=== PATIENT | male | born 1965 | race Caucasian/White ===

== ENCOUNTER 2024-05-18 18:36 | Inpatient (IN) | payer OTHER, SELFPAY ==
[2024-05-18 14:57] VITALS: BP 169/94
[2024-05-18 15:16] VITALS: BP 157/85
--- NOTE | 2024-05-18 15:34 | ED.GENMED ---
History of Present Illness
General
Chief Complaint: Breathing Problem
Source: patient and records
Exam Limitations: none
Time Seen by Provider: 05/18/24 15:13
Nursing documentation reviewed up to this point in time: agreed with
History of Present Illness
History of Present Illness:
58-year-old male presents with cough fatigue dyspnea on exertion about a month ago had a sinus infection symptoms have persisted, with shortness of breath cough possibly some weight gain into his abdomen, states he feels very short of breath when he
walks, he is wheezing, nondrinker non-smoker though he occasionally has a cigar, has had a cardiac cath that showed nonobstructive disease and mild at [place] for 5 years ago more recently had a similar one in [place] told that he was not a
candidate for valve repair nor a stent based upon the results
Past History
Past History
ED Past Medical History: Arrthythmia, CAD (Nonobstructive) and Valvular disease
ED Past Surgical History: Cardiac (Cath x 2)
Social History
Tobacco: Non-smoker
Alcohol: None
Drug: None
Personal: Partner
Living: with family
Employment: Employed
Review of Systems
Review of Systems
All Other Systems: Not applicable
Constitutional: Reports weight gain and fatigue; Denies fever or chills
Respiratory: Reports cough and trouble breathing
Cardiac: Denies chest pain
ABD/GI: Reports no symptoms
: Reports no symptoms
Musculoskeletal: Reports no symptoms
Skin: Reports no symptoms
Neurological: Reports no symptoms
Endocrine: Reports no symptoms
Phy Exam
Physical Exam
Physical Exam:
Physical Exam
General: no apparent distress, not acutely ill
Neck: No icterus
Heart: Regular with soft systolic murmur
Lungs: Crackles
Abdomen: Obese not tender
Neuro: alert and oriented. no focal neurological deficits
Skin: no rash
Psychiatric: well kept. interactive and cooperative
Extremities: Trace edema
Scores
Heart Failure Risk
Heart Failure Risk Score: Yes
History of Stroke or TIA: No
History of intubation for respiratory distress: No
Heart rate on ED arrival >/= 110: No
SaO2 <90% on arrival on room air: No
HR >/=110 during 3min walk test (or too ill to perform test): Yes
ECG has acute ischemic changes: No
Urea >/=12mmol/L (BUN 33.6mg/dL): No
Serum CO2>/=35mmol/L: No
Troponin I or T elevated to GA Level (0.4mg/dL): No
NT-proBNP >/=5,000ng/L (5,000pg/ml): No
HF Risk Score: 2
Admission Status: MEDIUM RISK 9.2% Consider observation or discharge to home with homecare & f/u visit to PCP/[employer] [employer], or SNF for treatment
Course
Orders/Labs/Results
Orders:
Orders
05/18/24 14:58
Electrocardiogram (*1) Urgent
Reason for Study: Shortness of Breath
EKG- Treatment ONCE
05/18/24 15:29
Electrocardiogram (*1) Stat
Reason for Study: Other
Other Reason for Exam: chest pain
Cardiac Monitoring- Treatment ONCE
EKG- Treatment ONCE
CR Chest Portable - 1 View Urgent
Comment:
Reason For Exam: sob perez
Reason Study Needs to be Portable: Patient Unstable
05/18/24 15:35
Complete Blood Count/With Diff Urgent
Comprehensive Metabolic Panel Urgent
Magnesium Urgent
NT-proBNP Urgent
Troponin I Urgent
Comment: ADD ON
05/18/24 16:54
Add On- LAB Urgent
Tests Added?: troponin
Furosemide [Lasix] 60 mg IV NOW STA
Abnormal Lab Results
05/18/24
15:35
RBC 4.05 L 10^6/uL
(4.70-6.10)
Hgb 12.0 L g/dL
(13.0-18.0)
Hct 33.6 L %
(39.0-52.0)
MPV 13.0 H fL
(7.4-10.4)
Glucose 145 H mg/dl
(70-99)
ALT 61 H U/L
(0-50)
05/18/24 15:35
05/18/24 15:35
Vital Signs
Initial and Last Documented VS:
Initial Vital Signs
Temp Pulse Resp BP Pulse Ox
99.3 F 80 16 169/94 96
05/18/24 14:57 05/18/24 14:57 05/18/24 14:57 05/18/24 14:57 05/18/24 14:57
Last Documented Vital Signs
Temp Pulse Resp BP Pulse Ox
99.3 F 81 16 146/77 95
05/18/24 14:57 05/18/24 17:22 05/18/24 14:57 05/18/24 17:03 05/18/24 17:00
MDM/Problems Addressed
Differential Diagnosis Includes:
Heart failure valvular disease late presentation ACS pneumonia bronchitis less likely PE
MDM/Problems Addressed:
Shortness of breath dyspnea on exertion
Chronic conditions affecting care:
Valvular disease CAD
Acute Exacerbation and/or Progression of Chronic Illness:
Valvular disease CAD
*Critical Care Note
Total Time (30-74mins, 75-104mins- exclusive of procedures): Not Applicable
Update Note
Update Note:
Update labs noted, suspect he has congestive heart failure, by history physical proBNP does have valvular disease and CAD, believe would be prudent admitted to the hospital facilitated workup,
ED Attending Note
-
Portions of this chart may have been created with voice recognition software.� Occasional wrong word or��sound alike� substitutions may have occurred due to the inherent limitations of voice recognition software.
Discharge Plan
Departure
Patient Disposition: Admit
Date of Disposition: 05/18/24
Time of Disposition: 18:03
Admit to: Telemetry
Presentation/result/management discussed w/ accepting MD/DO: Hospitalist
Patient with high blood pressure during this ER visit?: Yes
Condition: Good
Covid-19: Not Applicable
Discharge Problem:
CHF (congestive heart failure)
Prescriptions:
No Action
tamsulosin 0.4 MG capsule
0.4 mg PO Q72H
metoprolol succinate 25 MG tablet extended release 24 hr
25 mg PO DAILY Qty: 20 1RF
doxycycline hyclate 100 mg capsule
100 mg PO BID Qty: 14 0RF
prednisone 20 mg tablet
40 mg PO DAILY 5 Days Qty: 10 0RF
albuterol sulfate [Ventolin HFA] 90 mcg/actuation HFA aerosol inhaler
1 inh inhalation Q6H PRN (Reason: shortness of breath or wheezing) Qty: 6.7 0RF
Referrals:
PRIVATE,PHYSICIAN [Family Provider] -
Interventions
Interventions:
*Risk Screen - Suicide Last Done: 05/18/24 17:11
*General Assessment Last Done: 05/18/24 17:10
*Neglect/Abuse Screening Last Done: 05/18/24 17:10
ED- Fall Risk Assessment Last Done: 05/18/24 15:59
ED- Cardiac Assessment Last Done: 05/18/24 15:59
ED- Pulmonary Assessment Last Done: 05/18/24 15:59
Discharge Date and Time
Print Language: WELSH
[2024-05-18 15:44] LABS: % Basophils 0.4 % (0-2); % Eosinophils 3.2 % (0-6); % Immature Granulocytes 0.3 % (0-0.5); % Lymphocytes 29.9 % (20.5-51.1); % Monocytes 6.1 % (1.7-9.3); % Neutrophils 60.1 % (42.2-75.2); Absolute Eosinophils 0.2 10^3/uL (0-0.7); Absolute Lymphocytes 2.1 10^3/uL (1.2-3.4); Absolute Monocytes 0.4 10^3/uL (0.1-0.6); Absolute Neutrophils 4.1 10^3/uL (1.4-6.5); Hematocrit 33.6 % (39.0-52.0); Mean Corp Hgb Conc. 35.7 g/dL (33.0-37.0); Mean Corpuscular Hgb 29.6 pg (27.0-31.0); Nucleated Red Blood Cells % 0 % (-); Platelet Count 132 10^3/uL (130-400); Red Blood Cell Count 4.05 10^6/uL (4.70-6.10); Red Cell Dist. Width 13.6 % (11.5-14.5); White Blood Cell Count 6.9 10^3/uL (4.8-10.8)
[2024-05-18 15:58] LABS: ALT (SGPT) 61 U/L (0-50); AST (SGOT) 35 U/L (17-59); Alkaline Phosphatase 56 U/L (38-126); Blood Urea Nitrogen 20 mg/dl (9-20); Calcium 8.8 mg/dl (8.4-10.2); Carbon Dioxide 23 mmol/L (22-30); Chloride 105 mmol/L (98-107); Glucose 145 mg/dl (70-99); Magnesium 1.8 mg/dl (1.6-2.3); Potassium 4.1 mmol/L (3.5-5.1); Sodium 139 mmol/L (135-145); Total Bilirubin 0.8 mg/dl (0.2-1.3); Total Protein 6.7 g/dl (6.3-8.2); eGFR > 60.00
[2024-05-18 16:00] VITALS: BP 138/76
[2024-05-18 16:07] LABS: NT-proBNP 1100 pg/ml
[2024-05-18 17:00] VITALS: BP 146/77
[2024-05-18] MEDS: LASIX 60 MG IV (17:03)
[2024-05-18 17:49] LABS: Troponin I 0.016 ng/ml
--- NOTE | 2024-05-18 18:04 | HPS.HSE ---
Addendum entered and electronically signed by Jules Petit MD 05/18/24 18:44:
58-year-old male with a past medical history of nonobstructive coronary artery disease, hypertension, BPH, and obesity presents with orthopnea, dyspnea with activity, ankle swelling, and weight gain. Patient reports that he had upper respiratory
symptoms for the last 2 weeks, including rhinorrhea, congestion. Those symptoms have mostly improved, with the exception of his cough. Then he started developing dyspnea with activity, orthopnea, ankle swelling, and weight gain this week. BNP is
elevated at 1100. Chest x-ray negative. He does appear fluid overloaded on exam. He has received Lasix 60 mg IV in the ER.
Will treat with Lasix 40 mg IV daily, check echocardiogram, consult cardiology.
I have personally seen and examined the patient, and agree with the plan of care as documented by KATI Heath.
Advance care planning discussed, patient is a full code.
All other issues as outlined by the advanced care practitioner.
Original Note:
Family Physician
-
Family Physician: PHYSICIAN PRIVATE
Chief Complaint
-
sob
History of Present Illness
58-year-old male presents to us with two weeks of cough with yellowish sputum, runny nose, congestion. for past three days, he is very week, [place]. he can't lay flat, because of cough. denied AMOS, dizzy or syncopal episode. denied fever, chills. denied
abdominal pain,n,v,d. denied dysuria or hematuria. stated 4-5 weight gain in one week. he noticed some ankle swelling.
received iv Lasix. admitting for further management.
Medical History
Past Medical History
Past Medical History: Reports Other
Additional Past Medical History:
Hyperlipidemia
Mild aortic stenosis
Obstructive sleep apnea syndrome
SVT
Past Surgical History: Reports None
Social History
Tobacco: Non-smoker
Alcohol: None
Drug: None
Personal:
Living: With Family
Family History
Family History: Not pertinent
Allergies / Home Medications
Allergies reflects when Allergies were last updated in [employer].
Home Medications with original date entered in [employer]
Allergy/Medication List:
Allergies
Allergy/AdvReac Type Severity Reaction Status Date / Time
morphine AdvReac Nausea / Verified 05/18/24 14:58
Vomiting
Home Medications
tamsulosin 0.4 mg capsule 0.4 mg PO DAILY 10/19/20
dorzolamide-timolol (PF) 2 %-0.5 % eye drops in a dropperette 1 drp BOTH EYES BID 05/18/24
olmesartan 20 mg tablet 20 mg PO DAILY 05/18/24
Review of Systems
-
Constitutional: Reports Weight Gain
EENT: Reports Runny Nose
Respiratory: Reports Cough and Trouble Breathing
Cardiac: Reports No Symptoms
Abdomen/GI: Reports No Symptoms
: Reports No Symptoms
Musculoskeletal: Reports No Symptoms
Skin: Reports No Symptoms
Neurological: Reports No Symptoms
Endocrine: Reports No Symptoms
Hematologic/Lymphatic: Reports No Symptoms
Psych: Reports No Symptoms
Physical Exam
Vital Signs
Vital Signs
Temp Pulse Resp BP Pulse Ox
99.3 F 81 16 146/77 95
05/18/24 14:57 05/18/24 17:22 05/18/24 14:57 05/18/24 17:03 05/18/24 17:00
Physical Exam
General: Well Developed, Well Nourished and No Apparent Distress
HEENT: NormoCephalic, Moist mucous membranes and Atraumatic
Respiratory: Crackles
Cardiac: S1/S2 and Regular Rhythm; No Murmur or Rub
GI: Soft, Non Tender, Non Distended and Normal Bowel Sounds; No Organomegaly
Rectal: Deferred by Provider
Musculoskeletal: No Clubbing, No Cyanosis and No Edema
Skin: No Rash
Neuro: AO x 3 and Nonfocal/grossly intact
Psych: Calm
Laboratory Results
-
05/18/24 15:35
05/18/24 15:35
Laboratory Results
Total Bilirubin 0.8 mg/dl (0.2-1.3) 05/18/24 15:35
AST 35 U/L (17-59) 05/18/24 15:35
ALT 61 U/L (0-50) H 05/18/24 15:35
Alkaline Phosphatase 56 U/L (38-126) 05/18/24 15:35
Troponin I Cancelled 05/18/24 16:53
Data Reviewed
-
Diagnostic Radiology: Report Reviewed by me
Lab Data: Labs Reviewed by me
Impression/Plan
-
#new onset CHF
-[id number]
-chest x ray with cardiopulmonary disease
-iv lasix 40mg daily
-strict I &O
-daily weight
-fluid restriction
-obtain ECHO
-cardiology consult
#essential HTN
-olmesartan continued with hold parameter
#BPH
-Flomax continued
#DVT prophylaxis
-Lovenox
#CODE status
-full code
[2024-05-18 20:04] LABS: COVID-19 Antigen Negative (Negative)
[2024-05-18 20:22] VITALS: BP 140/79
[2024-05-18 23:41] VITALS: BP 124/76
[2024-05-19 03:20] VITALS: BP 131/65
[2024-05-19 07:23] VITALS: BP 142/87
[2024-05-19 08:36] LABS: Hematocrit 37.8 % (39.0-52.0); Hemoglobin 13.2 g/dL (13.0-18.0); Mean Corp Hgb Conc. 34.9 g/dL (33.0-37.0); Mean Corpuscular Hgb 29.8 pg (27.0-31.0); Mean Corpuscular Volume 85.3 fL (80.0-94.0); Mean Platelet Volume 12.4 fL (7.4-10.4); Platelet Count 123 10^3/uL (130-400); Red Blood Cell Count 4.43 10^6/uL (4.70-6.10); Red Cell Dist. Width 13.5 % (11.5-14.5); White Blood Cell Count 6.7 10^3/uL (4.8-10.8)
[2024-05-19] MEDS: FLOMAX 0.4 MG PO (08:40)
[2024-05-19] MEDS: BENICAR 20 MG PO (08:40)
[2024-05-19] MEDS: LASIX 40 MG IV ×2 (08:40→15:42)
[2024-05-19] MEDS: FLUSH (NSS) 1 FLUSH IV (08:41)
[2024-05-19 08:59] LABS: ALT (SGPT) 61 U/L (0-50); AST (SGOT) 30 U/L (17-59); Albumin 4.3 g/dl (3.5-5.0); Alkaline Phosphatase 60 U/L (38-126); Blood Urea Nitrogen 19 mg/dl (9-20); Calcium 9.1 mg/dl (8.4-10.2); Carbon Dioxide 27 mmol/L (22-30); Chloride 103 mmol/L (98-107); Direct Bilirubin 0.2 mg/dl (0.0-0.4); Glucose 118 mg/dl (70-99); HDL Cholesterol 37 mg/dl; LDL Cholesterol, Calculated 208 mg/dl; Magnesium 2.1 mg/dl (1.6-2.3); Sodium 142 mmol/L (135-145); Total Bilirubin 1.1 mg/dl (0.2-1.3); Total Cholesterol 276 mg/dl (50-199); Triglyceride 157 mg/dl (10-149); Very Low Density Lipoprotein 31 mg/dl (0-30); eGFR > 60.00
--- NOTE | 2024-05-19 09:17 | CON.CAR ---
Addendum entered and electronically signed by Mamadou Cardozo MD 05/19/24 16:34:
I interviewed and examined the patient. I discussed the plan with resident MD Dr. Ordonez. Agree with plan with changes/additions per this addendum.
58 yo with PMH of non-obstructive CAD ([facility] 2022), hyperlipidemia (FH range), PVC's, HTN, obesity, pre-DM admitted with SOB, edema,weight gain. He thinks he had COVID 2-3 weeks ago. No chest pain. Exam with RRR, no murmurs, trace LE
edema. Cr 0.8. Tele: SR 60s, PVC's.
Acute HF, severe, requiring hospitalization and IV lasix, with close monitoring of tele. Suspect HFPEF. Check echo. Continue IV lasix.
Non-obstructive CAD ([facility] 2022), hyperlipidemia (FH range). No angina. Add ASA 81mg daily. He declines statin.
Original Note:
Consultation
Consultation Request
Date/Time Consultation Requested: 05/18/2024
Date/Time Consultation Performed: 05/19/2024
Reason for Consultation: CHF
Medical History
-
Chief Complaint: Shortness of breath with exertion
History of Present Illness:
58-year-old male with past medical history of hypertension, BPH, hyperlipidemia presented to the ED with symptoms of orthopnea, dyspnea with exertion and weight gain. Patient reports symptoms of URI ongoing for the past 2 weeks including cough
congestion and rhinorrhea. Over the past few days symptoms of URI have been resolving, but now progressed to shortness of breath with exertion. Reports having similar presentation a year ago and was treated at [facility]. On
presentation to the ED, patient was afebrile, with O2 sats 97% on room air. Evaluation with chest x-ray unremarkable. proBNP 1100, troponin normal.
Past Medical History
Past Medical History: Other (Valvular disease, hypertension, BPH, hyperlipidemia, nonobstructive CAD)
Social History
Tobacco: Non-Smoker
Alcohol: None
Drug: None
Family History
Family History: Reviewed & Not Pertinent
Allergies / Home Medications
Allergy/AdvReac Type Severity Reaction Status Date / Time
morphine AdvReac Nausea / Verified 05/18/24 14:58
Vomiting
�Medication �Instructions �Recorded �Confirmed �Type
tamsulosin 0.4 mg capsule 0.4 mg PO DAILY bph 10/19/20 05/18/24 History
dorzolamide-timolol (PF) 2 %-0.5 % 1 drp BOTH EYES BID Eye Condition 05/18/24 05/18/24 History
eye drops in a dropperette
olmesartan 20 mg tablet 20 mg PO DAILY Blood Pressure 05/18/24 05/18/24 History
Review of Systems
-
All other systems: Negative unless noted
Physical Exam
Vital Signs
Temp Pulse Resp BP Pulse Ox
98.2 F 65 18 142/87 96
05/19/24 07:23 05/19/24 08:40 05/19/24 07:23 05/19/24 08:40 05/19/24 07:23
Lab Results
05/19/24 07:55
05/19/24 07:55
Troponin I Cancelled 05/18/24 16:53
Gqg-F-Iudmnwwyngf Pept 1100 pg/ml 05/18/24 15:35
Physical Exam
General: No Apparent Distress
Respiratory: Crackles (Mild B/L)
Cardiac: S1/S2 and Regular Rhythm
Musculoskeletal: Edema (Trace)
Neuro: Nonfocal/Grossly Intact
Impression / Plan
-
Impression/plan
Acute HFpEF
-Continue diuresis with IV Lasix
-Echo 06/25/2019 with LVEF 55 to 60%, mild aortic stenosis
-Update echo tomorrow a.m.
-Monitor weights, I's and O's, restrict fluids.
[2024-05-19 09:20] LABS: TSH Reflex To Free T4 2.86 uIU/ml (0.47-4.68)
--- NOTE | 2024-05-19 11:06 | W.PN.HOSP.TC ---
Today's Communication/Plan
-
diuresis
TTE
Cardiology consult
obtain records from last hospitalization - [facility]
Assessment / Plan
Assessment / Plan
58-year-old male with a past medical history of nonobstructive coronary artery disease, hypertension, BPH, and obesity presents with orthopnea, dyspnea with activity, ankle swelling, and weight gain, admitted for CHF exacerbation.
#new onset CHF, unknown EF
-[id number]
-chest x ray without active cardiopulmonary disease
-IV lasix 40mg daily
-strict I &O
-daily weight
-fluid restriction
-obtain ECHO
-cardiology consult
#essential HTN
-olmesartan continued with hold parameter
#BPH
-Flomax continued
#DVT prophylaxis
-Lovenox
#CODE status
-full code
Anticipated Discharge: 24 - 48 hours
Subjective/Interval History
-
Date of Service: May 19, 2024
urinated a lot overnight
feeling better today
continues to have some shortness of breath with walking
Objective Data
-
Labs:
Laboratory Results
05/19/24
07:55
WBC 6.7
Hgb 13.2
Hct 37.8 L
Plt Count 123 L
Sodium 142
Potassium 4.0
Chloride 103
Carbon Dioxide 27
BUN 19
Creatinine 0.8
Glucose 118 H
Calcium 9.1
Total Bilirubin 1.1
AST 30
ALT 61 H
Alkaline Phosphatase 60
Vital Signs:
Vital Signs
Temp Pulse Resp BP Pulse Ox
98.2 F 65 18 142/87 96
05/19/24 07:23 05/19/24 08:40 05/19/24 07:23 05/19/24 08:40 05/19/24 07:23
I&O
05/18/24 05/19/24 05/20/24
06:59 06:59 06:59
Intake Total 240 / 240
Balance 240 / 240
Review of Systems
-
History Source: Patient
All other systems: Reviewed and negative
Physical Exam
-
General: Obese
HEENT: PERRLA
Respiratory: Rales
Cardiac: Regular Rhythm and S1/S2
GI: Soft, Nontender and Nondistended
Musculoskeletal: Other (trace edema )
Skin: Warm and Dry; Negative Rash
Neuro: AO x 3
Psych: Calm
Data Reviewed
-
Diagnostic Radiology: Report Reviewed by me
Labs: Labs Reviewed by me
[2024-05-19 11:35] VITALS: BP 141/85
[2024-05-19 15:23] VITALS: BP 132/88
--- NOTE | 2024-05-19 19:26 | CM ---
met with patient at bedside.patient lives with his and 2 children in [facility] with 2 mathew,his bed and bath is on the second floor.he is I ambulating and I with his adl.he has never been seen by a vn or been in ip rehab
pcp is not sureof his pcp and he uses [facility] [place].
pmh:chf,vt,cad,valvular disease
patient is adm with difficulty breathing,he is sating ok on ra(he does not use home o2 at baseline) .on iv lasix bid.Plan;dc home with no needs.
attending asked to duarte farxigo and jardiance for tx fo chf. i called his [facility] in [place]. farxigo is not covered.cost is
$673.99 and jardiace needs to be precerted.cost is $725.99 with no precert.pharacist seems to think that if patient got [place] it may be less costly.attending aware.
[2024-05-19] MEDS: NON-FORMULARY ITEM 1 DROP BOTH EYES (19:29)
[2024-05-19 19:30] VITALS: BP 134/73
[2024-05-19 22:48] VITALS: BP 109/78
[2024-05-20 02:51] VITALS: BP 104/60
[2024-05-20 05:45] VITALS: BMI 36.1
[2024-05-20 07:38] VITALS: BP 108/73
[2024-05-20 07:59] LABS: Blood Urea Nitrogen 35 mg/dl (9-20); Calcium 9.3 mg/dl (8.4-10.2); Carbon Dioxide 32 mmol/L (22-30); Chloride 98 mmol/L (98-107); Estimated Creatinine Clearance 74 ml/min; Glucose 120 mg/dl (70-99); Potassium 4.4 mmol/L (3.5-5.1); Sodium 142 mmol/L (135-145); eGFR > 60.00
[2024-05-20 08:35] LABS: Hematocrit 40.8 % (39.0-52.0); Hemoglobin 14.1 g/dL (13.0-18.0); Mean Corp Hgb Conc. 34.6 g/dL (33.0-37.0); Mean Corpuscular Hgb 29.2 pg (27.0-31.0); Mean Corpuscular Volume 84.5 fL (80.0-94.0); Mean Platelet Volume 12.4 fL (7.4-10.4); Platelet Count 156 10^3/uL (130-400); Red Blood Cell Count 4.83 10^6/uL (4.70-6.10); Red Cell Dist. Width 13.8 % (11.5-14.5); White Blood Cell Count 8.1 10^3/uL (4.8-10.8)
[2024-05-20] MEDS: NON-FORMULARY ITEM 1 DROP BOTH EYES (09:32)
[2024-05-20] MEDS: BENICAR PO (09:33)
[2024-05-20] MEDS: LOW STRENGTH ASPIRIN 81 MG PO (09:34)
[2024-05-20] MEDS: FLOMAX 0.4 MG PO (09:34)
[2024-05-20] MEDS: LASIX 40 MG IV (09:35)
[2024-05-20 11:26] VITALS: BP 113/73
--- NOTE | 2024-05-20 11:40 | W.PN.HOSP.TC ---
Today's Communication/Plan
-
see plan
Assessment / Plan
Assessment / Plan
58-year-old male with a past medical history of nonobstructive coronary artery disease, hypertension, BPH, and obesity presents with orthopnea, dyspnea with activity, ankle swelling, and weight gain, admitted for CHF exacerbation.
#new onset CHF, unknown EF
-[id number]
-chest x ray without active cardiopulmonary disease
-s/p diuresis with improvement in symptoms; will put on hold for now until cardiology evaluates, can likely transition to oral tomorrow
-cardiac cath 2022 with lesion LAD 50% no stenting
-strict I &O
-daily weight
-fluid restriction
-F/U echo results
-cardiology consult
#essential HTN
-olmesartan continued with hold parameter
#BPH
-Flomax continued
#DVT prophylaxis
-Lovenox
#CODE status
-full code
Anticipated Discharge: Within 24 hours
Subjective/Interval History
-
Date of Service: May 20, 2024
feeling well
hoping to go home
walked around without shortness of breath, no LE swelling
awaiting echo results
Objective Data
-
Labs:
Laboratory Results
05/20/24
07:03
WBC 8.1
Hgb 14.1
Hct 40.8
Plt Count 156 D
Sodium 142
Potassium 4.4
Chloride 98
Carbon Dioxide 32 H
BUN 35 H
Creatinine 1.3
Glucose 120 H
Calcium 9.3
Vital Signs:
Vital Signs
Temp Pulse Resp BP Pulse Ox
97.8 F 70 18 113/73 100
05/20/24 11:26 05/20/24 11:26 05/20/24 11:26 05/20/24 11:26 05/20/24 11:26
I&O
05/19/24 05/20/24 05/21/24
06:59 06:59 06:59
Intake Total 240 / 240 1200 / 1200
Output Total 250 / 250
Balance 240 / 240 950 / 950
Review of Systems
-
History Source: Patient
All other systems: Reviewed and negative
Physical Exam
-
General: Obese
HEENT: PERRLA
Respiratory: Rales
Cardiac: Regular Rhythm and S1/S2
GI: Soft, Nontender and Nondistended
Musculoskeletal: No Edema
Skin: Warm and Dry; Negative Rash
Neuro: AO x 3
Psych: Calm
Data Reviewed
-
Diagnostic Radiology: Report Reviewed by me
Labs: Labs Reviewed by me
--- NOTE | 2024-05-20 13:55 | CM ---
Chart reviewed and patient is out of bed ambulating hallway. Patient is no longer on oxygen.
Plan; Plan is to home no needs.
--- NOTE | 2024-05-20 13:58 | W.PN.CD ---
Today's Communication / Plan
-
OK for home
F[place]
He may see us if he wishes
Impression / Plan
-
Acute HFpEF
- Now euvolemic at 107.6 kg
- Move to PO meds: lasix, Farxiga, Aldactone
- BMP in 2 and 4 weeks
Mild aortic stenosis
Severe hyperlipidemia
- refuses statin and any cholesterol medications
HTN
Glaucoma with visual loss
Nonobstructive CAD per patient (cath here in 2019: luminal disease and 70% RVB (med rx). He reports cath at [facility] with just a 40% lesion
Subjective:
Feels well.
Physical Exam
Vital Signs/Labs
Vital Signs
Temp Pulse Resp BP Pulse Ox
97.8 F 70 18 113/73 100
05/20/24 11:26 05/20/24 11:26 05/20/24 11:26 05/20/24 11:26 05/20/24 11:26
05/19/24 05/20/24 05/21/24
06:59 06:59 06:59
Actual Weight 110.6 kg 107.586 kg
05/20/24 07:03
05/20/24 07:03
Magnesium 2.1 mg/dl (1.6-2.3) 05/19/24 07:55
Triglycerides 157 mg/dl (10-149) H 05/19/24 07:55
LDL Cholesterol, Calc 208 mg/dl 05/19/24 07:55
VLDL Cholesterol, Calc 31 mg/dl (0-30) H 05/19/24 07:55
HDL Cholesterol 37 mg/dl 05/19/24 07:55
05/18/24
15:35
Mrn-A-Phvgejwhfsu Pept 1100
LAB Results
05/18/24 05/18/24
15:35 16:53
Troponin I 0.016 Cancelled
Physical Exam
Constitutional: No acute distress
EENT: Anicteric
Cardiovascular: Rhythm & rate is regular, Pedal edema is absent, Systolic murmur present and S1S2 is normal
Respiratory: Respiratory effort normal and Lungs clear to auscul.
GI: Soft and Distention absent
Neuro/Psych: AO x 3
Data Reviewed
-
Date of Service: May 20, 2024
--- NOTE | 2024-05-20 14:23 | W.DS.TRANS ---
DC Summary - [employer]
-
Discharge Instructions:
Discharge Diagnosis/Procedures Heart Failure with preserved Ejection Fraction,
acute exacerbation
Diet 2 Gram Sodium,Restrict fluids to 48 oz
Activity As tolerated
Driving Restrictions As prior to admission
Bathing Restrictions None
Blood Work BMP in 1 week
Specialty Instructions Weigh Daily
Instructions: *[facility] Heart Failure Instructions
Stand-Alone Forms:
Changes to Home Medications: Yes
Discharge Medications:
DC Medications w/original date entered in [employer]
tamsulosin 0.4 mg capsule 0.4 mg PO DAILY bph 10/19/20
dorzolamide-timolol (PF) 2 %-0.5 % eye drops in a dropperette 1 drp BOTH EYES BID Eye Condition 05/18/24
olmesartan 20 mg tablet 20 mg PO DAILY Blood Pressure 05/18/24
aspirin 81 mg chewable tablet 81 mg PO DAILY #30 tabs 05/20/24
furosemide 20 mg tablet 20 mg PO DAILY #30 tabs 05/20/24
spironolactone 25 mg tablet 25 mg PO DAILY #30 tabs 05/20/24
Home Medication Changes
You are newly started on Lasix 20mg daily and Spironolactone 25mg daily.
We want to prescribe Farxiga 10mg daily, but it is not covered by your insurance. Please discuss obtaining prior authorization with your outpatient physician.
You are newly started on aspirin 81mg given history coronary artery disease.
Pending Results: No
--- NOTE | 2024-05-20 14:23 | W.DCSUMMARY ---
Discharge Summary
Discharge Data
Date of Admission: 05/18/24
Date of Discharge: 05/20/24
-
Pending Results: No
Hospital Course
Discharging Physician : Dr. Michelle Weiner
Disposition : Home
Principal Discharge diagnosis : Heart failure preserved ejection fraction, acute exacerbation
Hospital Course :
Mr. Ciro Matta is a 58-year-old male with a past medical history of nonobstructive coronary artery disease, hypertension, BPH, and obesity presents with orthopnea, dyspnea with activity, ankle swelling, and weight gain. Triage vitals with
hypertension. Labs with normal renal function. CXR without acute disease. He was found to be fluid overloaded on exam. Admitted to medicine with cardiology consulting for new heart failure. He was diuresed with IV lasix with resolution of
symptoms, drop in weight from 110.6kg to 107.6kg. TTE without change from prior. He is discharged on Lasix 20mg PO QD, Spironolactone 25mg PO QD. Unfortunately, Farxiga and Jardiance not covered or need prior auth -he will follow up as outpatient
to start one of these medications.
Patient's insurance only covers outpatient [facility] in [place] and he will make appointment within next 2 weeks.
Time spent on discharge was 32 minutes.
Important imaging findings :
TTE 05/20/24
CONCLUSIONS
Normal biventricular size and systolic function without regional wall motion
abnormality.
Mild concentric left ventricular hypertrophy.
Indeterminate diastolic function.
Mild aortic stenosis (mean 24 mmHg, LUIS ANTONIO 1.7cm2).
Proximal Asc Ao Diameter 3.7cm (mildly enlarged).
No significant change since the prior study of 06/25/2019.
Procedure findings :
Discharge Plan
-
Patient Disposition: Home (Routine Discharge)
Discharge Diagnosis/Procedures: Heart Failure with preserved Ejection Fraction, acute exacerbation
Diet: 2 Gram Sodium and Restrict fluids to 48 oz
Activity: As tolerated
Driving Restrictions: As prior to admission
Bathing Restrictions: None
Blood Work: BMP in 1 week
Specialty Instructions: Weigh Daily- Call MD for wt gain/loss 3 lbs overnight/5 lbs in 1 week
Activity Restrictions/Additional Instructions:
Please follow up with your [facility] in [place] within the next 1-2 weeks
Instructions: *CBC Heart Failure Instructions
Referrals:
PRIVATE,PHYSICIAN [Family Provider] - in less than 1 week
Additional Discharge Medication Instructions: You are newly started on Lasix 20mg daily and Spironolactone 25mg daily.
We want to prescribe Farxiga 10mg daily, but it is not covered by your insurance. Please discuss obtaining prior authorization with your outpatient physician.
You are newly started on aspirin 81mg given history coronary artery disease.
Prescriptions:
New
spironolactone 25 mg Tablet
25 mg PO DAILY Qty: 30 0RF
aspirin 81 mg Tablet,Chewable
81 mg PO DAILY Qty: 30 0RF
furosemide 20 mg Tablet
20 mg PO DAILY Qty: 30 0RF
Continued
tamsulosin 0.4 MG capsule
0.4 mg PO DAILY
olmesartan 20 mg Tablet
20 mg PO DAILY
dorzolamide-timolol (PF) 2-0.5 % Dropperette
1 drp BOTH EYES BID
Discharge Orders:
Discharge Patient (As Directed); Ordered 05/20/24
Ordered By: Michelle Wenier
Discharge Date and Time
Print Language: MACEDONIAN
[2024-05-20 15:30] VITALS: BP 126/83
--- NOTE | 2024-05-23 08:01 | W.HF.CON ---
Heart Failure
- LV Function
Left ventricular function study result: LV Ejection fraction >40%
Ejection Fraction Percentage: 60
- ARNI
Patient already on ARNI: No
Heart Failure ARNI Not Indicated: LV Ejection Fraction >/= 40%
- ACEI/ARB
Patient already on ACEI/ARB: Yes
- Beta Sarah
Patient already on Evidence Based Beta Sarah: No
Heart Failure Evidence Based Beta Sarah Not Indicated: LV Ejection Fraction > 40%
- Mineralocorticord Receptor Antagonist
Patient already on MRA: Yes
- SGLT-2 Inhibitor
Patient already on SGLT-2 Inhibitor: No
Heart Failure SGLT-2 Inhibitor Not Indicated: LV Ejection Fraction >40%
- NYHA CHF Classification
NYHA CHF Classification Level: Class III - Symptoms w/ min exertion, interferes w/ nml daily activity
- ACC/AHA Stage
ACC/AHA Stage: Stage C: Symptomatic Heart Failure
== END 2024-05-20 16:34 | disposition home or self-care (01) | DRG 291 ==
LOC: 4 WEST ACU 18:36
PROVIDERS: Registered Nurse; ADMITTING PHYSICIAN Family Medicine; ATTENDING PHYSICIAN Student in an Organized Health Care Education/Training Program; EMERGENCY PHYSICIAN Emergency Medicine; OTHER PHYSICIAN Internal Medicine
DX: I11.0 Hypertensive heart disease with heart failure (principal); I50.31 Acute diastolic (congestive) heart failure; E66.9 Obesity, unspecified; Z68.36 Body mass index [BMI] 36.0-36.9, adult; I35.0 Nonrheumatic aortic (valve) stenosis; N40.0 Benign prostatic hyperplasia without lower urinary tract symptoms; I25.10 Atherosclerotic heart disease of native coronary artery without angina pectoris; E78.5 Hyperlipidemia, unspecified; G47.33 Obstructive sleep apnea (adult) (pediatric); R06.09 Other forms of dyspnea; R53.83 Other fatigue; Z79.899 Other long term (current) drug therapy; Z86.79 Personal history of other diseases of the circulatory system; Z88.5 Allergy status to narcotic agent
CPT/HCPCS: 71045; 80048; 80053; 80061; 82248; 83735; 83880; 84443; 84484; 85025; 85027; 87811; 93005; 93306; 96374; 99285; 99406

== ENCOUNTER 2025-01-30 10:03 | Emergency (ER) | payer OTHER, SELFPAY ==
[2025-01-30 10:09] VITALS: BP 148/95
--- NOTE | 2025-01-30 10:49 | ED.GENMED ---
History of Present Illness
General
Chief Complaint: Breathing Problem
Source: patient, records, previous radiology exam and previous hospital records
Exam Limitations: none
Time Seen by Provider: 01/30/25 10:36
Nursing documentation reviewed up to this point in time: agreed with
History of Present Illness
History of Present Illness:
59-year-old male history of mild nonobstructive CAD seen by myself a few months ago with shortness of breath admitted for possible heart failure proBNP was 1100 had an echo cardiology consultation told he really did not have heart failure
discharged not on a diuretic, but 3 weeks ago developed wheezing cough shortness of breath some productive sputum, no chest pain symptoms are worse with exertion and lying flat, non-smoker no history of asthma, patient did take some diuretic that he
had previously
Past History
Past History
ED Past Medical History: Arrthythmia, CAD (Nonobstructive) and Valvular disease
ED Past Surgical History: Cardiac (Cath x 2)
Social History
Tobacco: Non-smoker
Alcohol: None
Drug: None
Personal: Partner
Living: with family
Employment: Employed
Review of Systems
Review of Systems
All Other Systems: Not applicable
Constitutional: Denies fever or fatigue
Respiratory: Reports cough, trouble breathing and other (Wheezing); Denies hemoptysis
Cardiac: Reports chest pain; Denies diaphoresis, palpitations or syncope
ABD/GI: Reports no symptoms
: Reports no symptoms
Musculoskeletal: Reports no symptoms
Skin: Reports no symptoms
Neurological: Reports no symptoms
Phy Exam
Physical Exam
Physical Exam:
Physical Exam
General: No acute distress on his cell phone
Neck: No JVD
Heart: s1/s2 regular rate and rhythm, no murmur. equal radial pulses.
Lungs: Expiratory wheeze
Abdomen: Nontender
Neuro: alert and oriented. no focal neurological deficits
Skin: no rash
Psychiatric: well kept. interactive and cooperative
Extremities: no edema. no calf tenderness.
Scores
Heart Failure Risk
Heart Failure Risk Score: Not Applicable
Course
Orders/Labs/Results
Orders:
Orders
01/30/25 10:04
Electrocardiogram (*1) Urgent
Reason for Study: Shortness of Breath
EKG- Treatment ONCE
01/30/25 10:50
Cardiac Monitoring- Treatment ONCE
Ipratropium/Albuterol Sulfate [Duoneb] 3 ml INH R NOW STA
CR Chest - 2 Views Urgent
Comment:
Reason For Exam: cough
01/30/25 11:02
Complete Blood Count/With Diff Urgent
Comprehensive Metabolic Panel Urgent
NT-proBNP Urgent
Troponin I Urgent
01/30/25 12:30
Dexamethasone Sod Phosphate [Decadron] 10 mg IV NOW STA
Abnormal Lab Results
01/30/25
11:02
Plt Count 127 L 10^3/uL
(130-400)
MPV 12.1 H fL
(7.4-10.4)
Chloride 109 H mmol/L
(98-107)
Glucose 109 H mg/dl
(70-99)
ALT 87 H U/L
(0-50)
01/30/25 11:02
01/30/25 11:02
Vital Signs
Initial and Last Documented VS:
Initial Vital Signs
Temp Pulse Resp BP Pulse Ox
98.4 F 76 18 148/95 98
01/30/25 10:09 01/30/25 10:09 01/30/25 10:09 01/30/25 10:01/30/25 10:09
Last Documented Vital Signs
Temp Pulse Resp BP Pulse Ox
98.4 F 80 22 128/86 97
01/30/25 10:01/30/25 13:00 01/30/25 13:00 01/30/25 11:06 01/30/25 13:00
MDM/Problems Addressed
Differential Diagnosis Includes:
Bronchitis heart failure reflux pneumonia less likely ACS or PE
MDM/Problems Addressed:
Cough shortness of breath
*Radiology
Radiology exam reviewed: preliminary read by ED provider
*Pulse Oximetry
Patient hypoxic: no
*EKG
Interpreted by ED Provider?: Yes
Interpretation: abnormal
Comparison EKG: no comparison EKG present
Heart Rate: 78
Rate: normal
Rhythm: sinus
Ischemia: non-specific ST changes
*Fork Assembler Interpretation
Rate: normal
Interpretation: normal
Heart Rate: 78
Rhythm: sinus
*Critical Care Note
Total Time (30-74mins, 75-104mins- exclusive of procedures): Not Applicable
Data Reviewed
Review of Other/Old Records Reveals: Labs, Records, Testing, Progress Notes and Discharge Summary
Source: patient and records
Further Testing Considered But Not Given:
CT of the chest
Update Note
Update Note:
1145 labs noted troponin D-dimer noted chest x-ray pending
1:50 PM patient feeling much better, no longer wheezing, will discharge with steroids MDI antibiotics
He now tells me symptoms started after sleeping in a wet basement at her friend house believes he could have inhaled some dust or mold
ED Attending Note
-
Portions of this chart may have been created with voice recognition software.� Occasional wrong word or��sound alike� substitutions may have occurred due to the inherent limitations of voice recognition software.
Discharge Plan
Departure
Patient Disposition: Home (Routine Discharge)
Date of Disposition: 01/30/25
Time of Disposition: 13:28
Patient with high blood pressure during this ER visit?: No
Condition: Good
Covid-19: Not Applicable
Discharge Problem:
Acute bronchitis
Instructions: Bronchitis in adults - ED discharge instructions, Shortness of Breath (Dyspnea) (DC)
Prescriptions:
New
methylprednisolone [Medrol (Reynaldo)] 4 mg tablets,dose pack
See Rx Instructions .ROUTE .COMPLEX Qty: 21 0RF
Rx Instructions:
for 6 days
albuterol sulfate 90 mcg/actuation HFA aerosol inhaler
2 puff inhalation Q6H PRN (Reason: shortness of breath or wheezing) Qty: 8.5 1RF
doxycycline hyclate 100 mg tablet
100 mg PO BID Qty: 20 0RF
No Action
tamsulosin 0.4 MG capsule
0.4 mg PO DAILY
olmesartan 20 mg Tablet
20 mg PO DAILY
dorzolamide-timolol (PF) 2-0.5 % Dropperette
1 drp BOTH EYES BID
spironolactone 25 mg Tablet
25 mg PO DAILY Qty: 30 0RF
aspirin 81 mg Tablet,Chewable
81 mg PO DAILY Qty: 30 0RF
furosemide 20 mg Tablet
20 mg PO DAILY Qty: 30 0RF
Referrals:
PEDRO ISIDRO [Other] - Follow up in 5-7 days
Activity Restrictions/Additional Instructions:
Follow-up with your family doctor return to the ER for worsening symptoms
Interventions
Interventions:
*Risk Screen - Suicide Last Done: 01/30/25 10:09
*General Assessment Last Done: 01/30/25 10:09
*Neglect/Abuse Screening Last Done: 01/30/25 10:09
ED- Cardiac Assessment Last Done: 01/30/25 11:10
ED- Pulmonary Assessment Last Done: 01/30/25 11:10
Discharge Date and Time
Print Language: DANISH
[2025-01-30] MEDS: DUONEB 3 ML INH (10:58)
[2025-01-30 11:06] VITALS: BP 128/86
[2025-01-30 11:10] LABS: % Basophils 0.8 % (0-2); % Eosinophils 3.8 % (0-6); % Immature Granulocytes 0.2 % (0-0.5); % Lymphocytes 38.4 % (20.5-51.1); % Monocytes 8.4 % (1.7-9.3); % Neutrophils 48.4 % (42.2-75.2); Absolute Basophils 0.1 10^3/uL (0-0.2); Absolute Eosinophils 0.2 10^3/uL (0-0.7); Absolute Lymphocytes 2.3 10^3/uL (1.2-3.4); Absolute Monocytes 0.5 10^3/uL (0.1-0.6); Absolute Neutrophils 2.9 10^3/uL (1.4-6.5); Hematocrit 40.6 % (39.0-52.0); Hemoglobin 13.8 g/dL (13.0-18.0); Mean Corpuscular Hgb 29.2 pg (27.0-31.0); Mean Platelet Volume 12.1 fL (7.4-10.4); Nucleated Red Blood Cells % 0 % (-); Platelet Count 127 10^3/uL (130-400); Red Blood Cell Count 4.72 10^6/uL (4.70-6.10); Red Cell Dist. Width 13.3 % (11.5-14.5); White Blood Cell Count 6.1 10^3/uL (4.8-10.8)
[2025-01-30 11:29] LABS: ALT (SGPT) 87 U/L (0-50); AST (SGOT) 40 U/L (17-59); Albumin 4.7 g/dl (3.5-5.0); Alkaline Phosphatase 39 U/L (38-126); Blood Urea Nitrogen 18 mg/dl (9-20); Calcium 9.4 mg/dl (8.4-10.2); Carbon Dioxide 26 mmol/L (22-30); Chloride 109 mmol/L (98-107); Glucose 109 mg/dl (70-99); Potassium 4.4 mmol/L (3.5-5.1); Sodium 141 mmol/L (135-145); Total Bilirubin 0.9 mg/dl (0.2-1.3); Total Protein 7.8 g/dl (6.3-8.2); eGFR > 60.00
[2025-01-30 11:40] LABS: NT-proBNP 406 pg/ml
[2025-01-30] MEDS: DECADRON 10 MG IV (12:57)
[2025-01-30 13:10] VITALS: BP 129/67
== END 2025-01-30 13:56 | disposition home or self-care (01) ==
LOC: EMR 10:03
PROVIDERS: EMERGENCY PHYSICIAN Emergency Medicine
DX: J20.9 Acute bronchitis, unspecified (principal); I25.10 Atherosclerotic heart disease of native coronary artery without angina pectoris
CPT/HCPCS: 99285; 96374; 94640; 71046; 80053; 83880; 84484; 85025; 93005

== ENCOUNTER 2025-04-19 11:23 | Emergency (ER) | payer SELFPAY ==
[2025-04-19 11:28] VITALS: BP 134/83
--- NOTE | 2025-04-19 11:40 | EDRN ---
Adri PEPPER in room w/ pt.
--- NOTE | 2025-04-19 11:45 | ED.GENMED ---
History of Present Illness
General
Chief Complaint: Breathing Problem
Source: patient
Exam Limitations: none
Time Seen by Provider: 04/19/25 11:31
Nursing documentation reviewed up to this point in time: agreed with
History of Present Illness
History of Present Illness:
see MDM
Past History
Past History
ED Past Medical History: Arrthythmia, CAD (Nonobstructive) and Valvular disease
ED Past Surgical History: Cardiac (Cath x 2)
Social History
Tobacco: Non-smoker
Alcohol: None
Drug: None
Personal: Partner
Living: with family
Employment: Employed
Phy Exam
Physical Exam
Physical Exam:
GENERAL: Alert , in no apparent distress
EYE: pupils equal and reactive
NECK: Supple
ENT: b/l TM s clear, pharynx nonerythematous but no tonsillar hypertrophy or exudates
CARDIAC: Regular rate and rhythm, no edema
LUNGS: Faint wheezing and expiratory, no tachypnea, no acute respiratory distress, no wheezes/rales/rhonchi, occ cough
ABDOMEN: Soft, without focal tenderness, no r/g, no cvat, normal bowel sounds
NEUROLOGICAL: Alert and oriented, no focal neuro deficits
SKIN: Warm and dry, skin intact.
MUSCULOSKELETAL: Trace pretibial edema, well perfused.
PSYCH: Normal and appropriate interaction.
Scores
Heart Failure Risk
Heart Failure Risk Score: Not Applicable
Course
Orders/Labs/Results
Orders:
Orders
04/19/25 11:46
Ipratropium/Albuterol Sulfate [Duoneb] 3 ml INH R NOW ONE
04/19/25 11:48
Electrocardiogram (*1) Urgent
Reason for Study: Shortness of Breath
EKG- Treatment ONCE
Dexamethasone Sod Phosphate [Decadron] 10 mg IV NOW STA
CR Chest - 2 Views Urgent
Comment:
Reason For Exam: sob, cough, wheezing
04/19/25 12:09
Complete Blood Count/With Diff Urgent
Comprehensive Metabolic Panel Urgent
NT-proBNP Urgent
Troponin I Urgent
Abnormal Lab Results
04/19/25
12:09
RBC 4.53 L 10^6/uL
(4.70-6.10)
Hct 38.3 L %
(39.0-52.0)
Plt Count 123 L 10^3/uL
(130-400)
MPV 12.5 H fL
(7.4-10.4)
Glucose 107 H mg/dl
(70-99)
ALT 63 H U/L
(0-50)
04/19/25 12:09
04/19/25 12:09
Vital Signs
Initial and Last Documented VS:
Initial Vital Signs
Temp Pulse Resp BP Pulse Ox
36.8 C 82 18 134/83 98
04/19/25 11:28 04/19/25 11:28 04/19/25 11:28 04/19/25 11:28 04/19/25 11:28
Last Documented Vital Signs
Temp Pulse Resp BP Pulse Ox
36.8 C 90 16 142/97 98
04/19/25 11:28 04/19/25 14:19 04/19/25 14:19 04/19/25 14:19 04/19/25 14:19
MDM/Problems Addressed
Differential Diagnosis Includes:
seeMDM
MDM/Problems Addressed:
Note:
CHIEF COMPLAINT(S)
Wheezing and shortness of breath.
HISTORY OF PRESENT ILLNESS
The patient is a {male} who presents with wheezing and shortness of breath. He reports that the wheezing began approximately 1ish weeks ago, particularly when lying down. He initially suspected it was related to gastroesophageal reflux disease
(GERD), but the wheezing has progressively worsened. The patient experiences shortness of breath, especially with fast movements, and describes a burning sensation when coughing. He denies smoking, fever, chills, sore throat, and nasal congestion.
There is no productive cough, although he occasionally perceives a taste in his mouth when coughing.
The patient was previously diagnosed with bronchitis and was prescribed antibiotics, including doxycycline. His , a nurse, assessed his lungs and noted that they were clear, suggesting a bronchial issue rather than an infection. The patient
acknowledges prior use of albuterol provided during a past visit, which offered some relief.
The patient describes a history of fluid buildup in the body, notably over a holiday weekend, leading to hospital admission for assessment. An echocardiogram was performed, and initial findings suggested possible congestive heart failure, though
subsequent evaluations showed no cardiac abnormalities. The patient denies any current fluid buildup issues or recent episodes.
CHRONIC MEDICAL CONDITIONS SIGNIFICANTLY AFFECTING CARE
Patient recounts a past diagnosis of fluid buildup potentially related to heart function, but despite this, denies ongoing issues with cardiac health.
PHYSICAL EXAM
- Nursing notes reviewed and vital signs reviewed.
PLAN
- The patient will be evaluated for possible steroid therapy to address wheezing and assess for potential fluid in the lungs.
- An assessment to rule out bronchitis and cardiac-related fluid retention in the lungs will be considered.
DIFFERENTIAL DIAGNOSIS
The Differential Diagnosis includes, in no particular order and is not limited to:
1. Bronchitis
2. Asthma
3. Gastroesophageal reflux disease (GERD)
4. Congestive heart failure
5. Chronic obstructive pulmonary disease (COPD)
6. Cardiomyopathy
7. Pulmonary embolism
8. Pneumonia
9. Interstitial lung disease
10. Allergic reaction or environmental exposure
CARE-UPDATE
04/19/25 - 13:19
Patient reports feeling better after nebulizer treatment, with improved breathing noted on examination. No evidence of pneumonia on physical exam; however, X-ray findings appear suspicious for possible fluid, pending radiologist confirmation. Blood
work does not suggest congestive heart failure, and EKG shows no abnormalities. Patient has a history of atrial fibrillation and multiple ablations, not currently on blood thinners due to long-term stability. Plan is to discharge with prescriptions
for steroids, an inhaler, and a Z-pack, pending radiologists input on fluid status. Patient has a nebulizer at home but may benefit from an updated machine if necessary. Will reassess patients status upon return.
Disposition:
SUMMARY OF ENCOUNTER
The patient is a 59-year-old male with a history of remote atrial fibrillation status post-ablation, not currently on anticoagulation, and a questionable history of congestive heart failure, although with a normal ejection fraction. He was briefly
on beta-blockers for arrhythmia and has a history of bronchitis. He presented with a one and a half week history of dry cough, worsened at night and when lying flat, accompanied by wheezing notable for the past two days. [id number] medications
and an albuterol inhaler provided no relief. He was able to walk briskly without shortness of breath upon evaluation, and was not hypoxic. Examination revealed a faint end-expiratory wheeze and some sinus arrhythmia on EKG, without ischemic changes.
His symptoms improved notably after administration of DuoNeb and dexamethasone.
DISPOSITION
Discharge
ASSESSMENT
The patients symptoms, alongside a chest X-ray showing questionable mild interstitial edema or pneumonia, and a negative BNP, support that this is not a congestive heart failure exacerbation. The therapeutic focus was empirical coverage for possible
pneumonia or other infection.
EMERGENCY TREATMENTS ADMINISTERED
The patient was treated with DuoNeb (ipratropium and albuterol) and dexamethasone.
REASSESSMENT
After treatment with DuoNeb and dexamethasone, the patient reported feeling much better and there was a noticeable improvement in his wheezing.
PLAN
Empirical treatment with doxycycline was initiated, particularly given its previous effectiveness for what was diagnosed as bronchitis. Arrangements will be made to obtain a nebulizer for home use.
INDEPENDENT REVIEW OF LABS AND INTERPRETATION OF TESTS
- My independent review of EKG indicates sinus arrhythmia without ischemic changes.
- My independent interpretation of the chest X-ray suggests questionable mild interstitial edema versus pneumonia.
- My independent review of BNP is negative, supporting that this is not a heart failure exacerbation.
- My independent review of troponin shows a level of 0.016, consistent with the patients baseline.
PATIENT EDUCATION AND COUNSELING
The patient was counseled on return precautions, including signs and symptoms that would necessitate immediate medical attention.
FOLLOW-UP INSTRUCTIONS
Arrangements will be made to provide the patient with a nebulizer machine for home use. Further follow-up to be arranged based on the patient�s condition and primary care recommendations.
MEDICATION RECONCILIATION
Doxycycline has been prescribed for empirical treatment due to its past effectiveness with this patients bronchial symptoms.
MEDICAL DECISION MAKING
- Complexity of Data Reviewed: Chronic conditions affecting care include atrial fibrillation (remote history), questionable congestive heart failure, briefly treated arrhythmia, and bronchitis. Differential diagnosis includes bronchitis, asthma,
GERD, congestive heart failure, COPD, cardiomyopathy, pulmonary embolism, pneumonia, interstitial lung disease, and allergic reaction or environmental exposure.
- Data:
Category 1: Tests and documents:
- My independent interpretation of EKG and chest X-ray.
- Review and analysis of BNP and troponin levels.
Category 2: None mentioned.
Category 3: None mentioned.
- Risk: Prescription medication was prescribed. My consideration of admission or observation concluded that the patient is safe for outpatient management with close follow-up due to improvement post-treatment, stable vital signs, and being reliable
for follow-up.
DIAGNOSIS
- Cough, unspecified [R05]
- Wheezing [R06.2]
- Possible Pneumonia, unspecified [J18.9]
*Pulse Oximetry
SaO2: 98
Oxygen Mode of Delivery: Room air
Patient hypoxic: no (98)
*Critical Care Note
Total Time (30-74mins, 75-104mins- exclusive of procedures): Not Applicable
ED Attending Note
-
Portions of this chart may have been created with voice recognition software.� Occasional wrong word or��sound alike� substitutions may have occurred due to the inherent limitations of voice recognition software.
Discharge Plan
Departure
Patient Disposition: Home (Routine Discharge)
Date of Disposition: 04/19/25
Time of Disposition: 13:52
Patient with high blood pressure during this ER visit?: No
Condition: Fair
Covid-19: Not Applicable
Discharge Problem:
Bronchitis
Instructions: Acute Bronchitis, Adult (DC)
Prescriptions:
New
prednisone 50 mg tablet
50 mg PO DAILY Qty: 5 0RF
albuterol sulfate 2.5 mg /3 mL (0.083 %) solution for nebulization
2.5 mg inhalation Q6H PRN (Reason: shortness of breath or wheezing) Qty: 75 0RF
doxycycline hyclate 100 mg capsule
100 mg PO BID Qty: 14 0RF
No Action
tamsulosin 0.4 MG capsule
0.4 mg PO DAILY
olmesartan 20 mg Tablet
20 mg PO DAILY
dorzolamide-timolol (PF) 2-0.5 % Dropperette
1 drp BOTH EYES BID
spironolactone 25 mg Tablet
25 mg PO DAILY Qty: 30 0RF
aspirin 81 mg Tablet,Chewable
81 mg PO DAILY Qty: 30 0RF
furosemide 20 mg Tablet
20 mg PO DAILY Qty: 30 0RF
methylprednisolone [Medrol (Reynaldo)] 4 mg tablets,dose pack
See Rx Instructions .ROUTE .COMPLEX Qty: 21 0RF
Rx Instructions:
for 6 days
albuterol sulfate 90 mcg/actuation HFA aerosol inhaler
2 puff inhalation Q6H PRN (Reason: shortness of breath or wheezing) Qty: 8.5 1RF
doxycycline hyclate 100 mg tablet
100 mg PO BID Qty: 20 0RF
Referrals:
TIFFANIE ISIDRO [Other] - Follow up in 5-7 days
Activity Restrictions/Additional Instructions:
You probably have an asthmatic bronchitis. It is questionable whether you have a little bit of fluid in your lungs. For now we will treat it as bronchitis/early pneumonia with steroids, nebulizer machine, doxycycline which is an antibiotic if you
do not improve with the symptoms
You should follow-up with your family doctor. You should also be weighing yourself every morning to know if you are gaining water weight.
Return for worsening shortness of breath, exertional shortness of breath or chest pain, fever or chills, coughing up blood, worsening swelling or fatigue, inability to lay flat etc.
Interventions
Interventions:
*Risk Screen - Suicide Last Done: 04/19/25 11:28
*General Assessment Last Done: 04/19/25 11:58
*Neglect/Abuse Screening Last Done: 04/19/25 11:28
*ED- Fall Risk Assessment Last Done: 04/19/25 11:58
*ED COVID-19 Vaccine History Last Done: 04/19/25 11:58
*Nursing Disposition Last Done: 04/19/25 14:25
ED- Cardiac Assessment Last Done: 04/19/25 12:00
ED- Pulmonary Assessment Last Done: 04/19/25 12:00
Discharge Date and Time
Discharge Date/Time: 04/19/25 14:25
Print Language: MACEDONIAN
[2025-04-19 11:57] VITALS: BMI 40.9
[2025-04-19] MEDS: DECADRON 10 MG IV (12:05)
[2025-04-19] MEDS: DUONEB 3 ML INH (12:08)
[2025-04-19 12:10] VITALS: BP 158/90
[2025-04-19 12:26] LABS: Hematocrit 38.3 % (39.0-52.0); Hemoglobin 13.0 g/dL (13.0-18.0); Mean Corp Hgb Conc. 33.9 g/dL (33.0-37.0); Mean Corpuscular Volume 84.5 fL (80.0-94.0); Nucleated Red Blood Cells % 0 % (-); Platelet Count 123 10^3/uL (130-400); Red Cell Dist. Width 13.6 % (11.5-14.5)
[2025-04-19 12:44] LABS: ALT (SGPT) 63 U/L (0-50); AST (SGOT) 30 U/L (17-59); Albumin 4.2 g/dl (3.5-5.0); Alkaline Phosphatase 43 U/L (38-126); Blood Urea Nitrogen 14 mg/dl (9-20); Calcium 9.2 mg/dl (8.4-10.2); Carbon Dioxide 25 mmol/L (22-30); Chloride 107 mmol/L (98-107); Estimated Creatinine Clearance > 125 ml/min; Glucose 107 mg/dl (70-99); Potassium 4.4 mmol/L (3.5-5.1); Sodium 140 mmol/L (135-145); Total Protein 7.0 g/dl (6.3-8.2); eGFR > 60.00
[2025-04-19 12:57] LABS: Troponin I 0.016 ng/ml
[2025-04-19 13:21] VITALS: BP 150/91
[2025-04-19 14:00] VITALS: BP 151/108
[2025-04-19 14:19] VITALS: BP 142/97
== END 2025-04-19 14:25 | disposition home or self-care (01) ==
LOC: EMR 11:23
PROVIDERS: Physician Assistant; EMERGENCY PHYSICIAN Emergency Medicine
DX: J40 Bronchitis, not specified as acute or chronic (principal); I25.10 Atherosclerotic heart disease of native coronary artery without angina pectoris; I38 Endocarditis, valve unspecified; Z79.52 Long term (current) use of systemic steroids
CPT/HCPCS: 99283; 94640; 96374; 71046; 80053; 83880; 84484; 85025; 93005

== ENCOUNTER 2025-05-16 12:53 | Inpatient (IN) | payer OTHER, SELFPAY ==
[2025-05-16 06:42] VITALS: BP 153/100
--- NOTE | 2025-05-16 06:56 | ED.GENMED ---
History of Present Illness
General
Chief Complaint: Cough
Source: patient
Exam Limitations: none
Time Seen by Provider: 05/16/25 06:46
Nursing documentation reviewed up to this point in time: agreed with
History of Present Illness
History of Present Illness:
59-year-old male with a past medical history of hypertension, hyperlipidemia, CAD who presents to the ER for evaluation of shortness of breath and cough. Patient had an admission about a year ago for similar symptoms and was found to have
congestive heart failure; he did have associated hypertension at that time. Echocardiogram during that admission showed normal biventricular size and function without regional wall motion abnormality. He was discharged on diuretic., He says that
since that hospitalization he has not had any issues until early last month when he presented with cough and wheezing. He was seen in the ER and diagnosed with bronchitis and was given steroids, albuterol, antibiotics. He says symptoms improved
with that course of treatment however similar symptoms returned earlier this month and he was once again seen in the ER. He was once again diagnosed with bronchitis and discharged on similar medications. He says that the second round of steroids
and antibiotics, albuterol did improve symptoms slightly but his symptoms never resolved and over the past week or so have been increasing once again. He states shortness of breath particular with exertion. He reports wheezing. He says his
symptoms seem to be worse when laying flat. He says he has had hacking cough with clear sputum production. He says that over the past few days he has developed swelling in the legs particular on the ankles. He says he has had about a 6 pound
weight gain in the past week. He denies any associated chest pain. He denies any associated fevers or chills. He denies any other acute complaints.
Past History
Past History
ED Past Medical History: Arrthythmia, CAD (Nonobstructive) and Valvular disease
ED Past Surgical History: Cardiac (Cath x 2)
Social History
Tobacco: Non-smoker
Alcohol: None
Drug: None
Personal: Partner
Living: with family
Employment: Employed
Review of Systems
Review of Systems
All Other Systems: ROS reviewed and negative except as documented in HPI and ROS
Constitutional: Denies fever or chills
Respiratory: Reports cough and trouble breathing
Cardiac: Denies chest pain
ABD/GI: Denies abdominal pain, nausea or vomiting
: Denies flank pain
Musculoskeletal: Reports edema; Denies neck pain or back pain
Neurological: Denies dizzy or headache
Phy Exam
Physical Exam
Physical Exam:
General: Awake, alert, oriented x3; no acute distress
Head: Normocephalic, atraumatic
Eyes: Conjunctiva normal
Throat: Airway intact, handling secretions
Neck: Trachea midline, no JVD noted
Lungs: Very faint scattered expiratory wheezing and occasional cough; no tachypnea or hypoxia noted
Heart: Regular rate and rhythm with occasional ectopy, no murmurs, gallops, or rubs
Abd: Soft, non distended, nontender
Neuro: Grossly intact
Skin: No rash
Extremities: Patient has bilateral +1 edema in the lower extremities bilaterally; extremities are warm and well-perfused
Scores
Heart Score for Chest Pain Patients
STEMI patient?: Not applicable
Withdrawal Assessment of Alcohol
Withdrawal Assessment Completed?: Not applicable
Course
Orders/Labs/Results
Orders:
Orders
05/16/25 06:48
Electrocardiogram (*1) Urgent
Reason for Study: Heart Failure, Left
EKG- Treatment ONCE
CR Chest - 2 Views Urgent
Comment:
Reason For Exam: cough
05/16/25 07:58
COVID-19 Antigen Urgent
Source: Nasal Swab
Complete Blood Count/With Diff Urgent
Comprehensive Metabolic Panel Urgent
NT-proBNP Urgent
Troponin I Urgent
Influenza A+B Rapid Molecular Urgent
NAVARRO Source: Nasal Swab
Specimen Description:
RSV [Respiratory Syncytial Virus] Urgent
NAVARRO Source: Nasal Swab
Specimen Description:
Date Specimen was Collected: 05/16/25
Time Specimen was Collected: 07:06
05/16/25 08:59
Furosemide [Lasix] 40 mg IV NOW STA
05/16/25 09:06
Nitroglycerin Ointment [Nitro-Bid] 1 inch TOPICAL NOW STA
05/16/25 11:00
Troponin I Urgent
Abnormal Lab Results
05/16/25
07:58
RBC 4.63 L 10^6/uL
(4.70-6.10)
MPV 12.7 H fL
(7.4-10.4)
Chloride 110 H mmol/L
(98-107)
Glucose 130 H mg/dl
(70-99)
ALT 89 H U/L
(0-50)
Troponin I 0.036 H* ng/ml
05/16/25 07:58
05/16/25 07:58
Vital Signs
Initial and Last Documented VS:
Initial Vital Signs
Temp Pulse Resp BP Pulse Ox
36.9 C 75 20 153/100 97
05/16/25 06:42 05/16/25 06:42 05/16/25 06:42 05/16/25 06:42 05/16/25 06:42
Last Documented Vital Signs
Temp Pulse Resp BP Pulse Ox
36.9 C 75 20 153/100 97
05/16/25 06:42 05/16/25 06:42 05/16/25 06:42 05/16/25 06:42 05/16/25 06:57
MDM/Problems Addressed
Differential Diagnosis Includes:
Congestive heart failure, pneumonia, bronchitis, symptomatic anemia
MDM/Problems Addressed:
59-year-old male returns to the ER for evaluation of increasing shortness of breath particular with exertion, cough. Recently developed swelling in the legs as well as weight gain. He has been treated for bronchitis x 2 over the past few months
but symptoms continue to recur. He is hypertensive here with a blood pressure of 153/100. Rest of vitals within acceptable range. Physical exam as above. Overall clinical picture concerning for congestive heart failure. He had an admission in
May 2024 with similar symptoms and presentation. Although his proBNP was not significantly elevated during prior to ER visits this may be falsely low due to obesity. Plan to repeat labs including a CBC and a CMP, proBNP. Send viral swabs.
Repeat chest x-ray. Check an EKG and troponin. Will monitor closely reassess after the above.
Labs reviewed: CBC unremarkable, CMP no clinically significant abnormalities. Troponin marginally elevated, proBNP 670 uptrending likely on the lower side due to patient's high BMI�overall his clinical picture is consistent with acute CHF. Blood
pressure remains mildly elevated will treat with Nitropaste. Provide IV Lasix. I had a long discussion with the patient�he does not have insurance presently and says that he was not able to see a medical records library professor after his last visit in May. I
think given his third ER visit, poor outpatient follow-up, continued hypertension he should be admitted for management of acute CHF. Discussed case with hospitalist.
Acute Exacerbation and/or Progression of Chronic Illness:
Acutely hypertensive� Managed with nitroglycerin
Acute Exacerbation and/or Progression of Chronic Illness: HTN
*Radiology
Radiology exam reviewed: preliminary read by ED provider and radiology read reviewed
*Pulse Oximetry
SaO2: 97
Oxygen Mode of Delivery: Room air
Patient hypoxic: no (97%)
*Critical Care Note
Total Time (30-74mins, 75-104mins- exclusive of procedures): Not Applicable
Data Reviewed
Review of Other/Old Records Reveals: Labs, Records and Radiology Studies
Source: patient and records
Patient Management
Social determinants of health affecting care: Poor outpatient follow-up
Discussion with other providers: Hospitalist (Discussed with hospitalist)
Escalation/DeEscalation of care consider admission/obs:
Admission indicated
ED Attending Note
-
Portions of this chart may have been created with voice recognition software.� Occasional wrong word or��sound alike� substitutions may have occurred due to the inherent limitations of voice recognition software.
Discharge Plan
Departure
Patient Disposition: Admit
Date of Disposition: 05/16/25
Time of Disposition: 09:08
Admit to doctor: Kush
Presentation/result/management discussed w/ accepting MD/DO: Hospitalist
Discharge Problem:
Acute CHF, Hypertension
Prescriptions:
No Action
tamsulosin 0.4 MG capsule
0.4 mg PO DAILY
olmesartan 20 mg Tablet
20 mg PO DAILY
dorzolamide-timolol (PF) 2-0.5 % Dropperette
1 drp BOTH EYES BID
spironolactone 25 mg Tablet
25 mg PO DAILY Qty: 30 0RF
aspirin 81 mg Tablet,Chewable
81 mg PO DAILY Qty: 30 0RF
furosemide 20 mg Tablet
20 mg PO DAILY Qty: 30 0RF
methylprednisolone [Medrol (Reynaldo)] 4 mg tablets,dose pack
See Rx Instructions .ROUTE .COMPLEX Qty: 21 0RF
Rx Instructions:
for 6 days
albuterol sulfate 90 mcg/actuation HFA aerosol inhaler
2 puff inhalation Q6H PRN (Reason: shortness of breath or wheezing) Qty: 8.5 1RF
doxycycline hyclate 100 mg tablet
100 mg PO BID Qty: 20 0RF
prednisone 50 mg tablet
50 mg PO DAILY Qty: 5 0RF
albuterol sulfate 2.5 mg /3 mL (0.083 %) solution for nebulization
2.5 mg inhalation Q6H PRN (Reason: shortness of breath or wheezing) Qty: 75 0RF
doxycycline hyclate 100 mg capsule
100 mg PO BID Qty: 14 0RF
Referrals:
UNKNOWN - PT DOES,NOT KNOW [Family Provider]
Interventions
Interventions:
*Risk Screen - Suicide Last Done: 05/16/25 06:42
*General Assessment Last Done: 05/16/25 06:42
*Neglect/Abuse Screening Last Done: 05/16/25 06:42
*ED- Fall Risk Assessment Last Done: 05/16/25 08:10
*ED COVID-19 Vaccine History Last Done: 05/16/25 08:10
Discharge Date and Time
Print Language: MAORI
[2025-05-16 07:52] VITALS: BMI 40.3
[2025-05-16 08:22] LABS: Hematocrit 39.9 % (39.0-52.0); Hemoglobin 13.4 g/dL (13.0-18.0); Mean Corp Hgb Conc. 33.6 g/dL (33.0-37.0); Mean Corpuscular Volume 86.2 fL (80.0-94.0); Nucleated Red Blood Cells % 0 % (-); Platelet Count 144 10^3/uL (130-400); Red Cell Dist. Width 13.8 % (11.5-14.5)
[2025-05-16 08:37] LABS: COVID-19 Antigen Negative (Negative)
[2025-05-16 08:38] LABS: ALT (SGPT) 89 U/L (0-50); AST (SGOT) 42 U/L (17-59); Albumin 4.3 g/dl (3.5-5.0); Alkaline Phosphatase 45 U/L (38-126); Blood Urea Nitrogen 18 mg/dl (9-20); Calcium 9.2 mg/dl (8.4-10.2); Carbon Dioxide 25 mmol/L (22-30); Chloride 110 mmol/L (98-107); Estimated Creatinine Clearance > 125 ml/min; Glucose 130 mg/dl (70-99); Potassium 4.7 mmol/L (3.5-5.1); Sodium 141 mmol/L (135-145); Total Protein 7.3 g/dl (6.3-8.2); eGFR > 60.00
[2025-05-16 08:54] LABS: Troponin I 0.036 ng/ml
[2025-05-16] MEDS: NITRO-BID 1 INCH TOPICAL (09:30)
[2025-05-16] MEDS: LASIX 40 MG IV ×2 (09:31→16:01)
[2025-05-16 11:00] VITALS: BP 146/89
[2025-05-16 12:00] VITALS: BP 125/90
--- NOTE | 2025-05-16 12:29 | HPS.HSE ---
Family Physician
-
Family Physician: NOT KNOW UNKNOWN - PT DOES
Chief Complaint
-
sob
History of Present Illness
58 male history of nonobstructive CAD hypertension BPH obesity presenting with shortness of breath on exertion at rest unable to lie flat along with ankle swelling that has been poorly getting worse over the last 1 week. Admits to 7 pound weight
gain in that timeframe. States he eats relatively healthy does not drink too much fluid but might add a little bit more salt to his food.
Medical History
Past Medical History
Past Medical History: Reports CAD and CHF
Past Surgical History: Reports None
Social History
Tobacco: Non-smoker
Alcohol: None
Drug: None
Personal:
Living: With Family
Family History
Family History: Not pertinent
Allergies / Home Medications
Allergies reflects when Allergies were last updated in [facility].
Home Medications with original date entered in [facility]
Allergy/Medication List:
Allergies
Allergy/AdvReac Type Severity Reaction Status Date / Time
doxycycline Allergy Unknown Verified 05/16/25 06:41
morphine AdvReac Nausea / Verified 04/19/25 11:27
Vomiting
Home Medications
tamsulosin 0.4 mg capsule 0.4 mg PO DAILY bph 10/19/20
dorzolamide-timolol (PF) 2 %-0.5 % eye drops in a dropperette 1 drp BOTH EYES BID Eye Condition 05/18/24
olmesartan 20 mg tablet 20 mg PO DAILY Blood Pressure 05/18/24
aspirin 81 mg chewable tablet 81 mg PO DAILY #30 tabs 05/20/24
furosemide 20 mg tablet 20 mg PO DAILY #30 tabs 05/20/24
spironolactone 25 mg tablet 25 mg PO DAILY #30 tabs 05/20/24
albuterol sulfate 90 mcg/actuation aerosol inhaler 2 puff inhalation Q6H PRN shortness of breath or wheezing #8.5 grams 01/30/25
doxycycline hyclate 100 mg tablet 100 mg PO BID #20 tabs 01/30/25
methylprednisolone 4 mg tablets in a dose pack (Medrol (Reynaldo)) See Rx Instructions PO .COMPLEX #21 ea 01/30/25
albuterol sulfate 2.5 mg/3 mL (0.083 %) solution for nebulization 2.5 mg (3 mL) inhalation Q6H PRN shortness of breath or wheezing #75 mL 04/19/25
doxycycline hyclate 100 mg capsule 100 mg PO BID #14 caps 04/19/25
prednisone 50 mg tablet 50 mg PO DAILY #5 tabs 04/19/25
Review of Systems
-
A 12 point ROS was completed and negative except as noted: Yes
Physical Exam
Vital Signs
Vital Signs
Temp Pulse Resp BP Pulse Ox
98.5 F 77 16 125/90 95
05/16/25 06:42 05/16/25 12:15 05/16/25 12:15 05/16/25 12:00 05/16/25 12:15
Physical Exam
General: No Apparent Distress, Comfortable and Morbidly Obese
HEENT: NormoCephalic and Anicteric
Respiratory: Crackles (Bibasilar)
Cardiac: S1/S2 and Regular Rhythm
GI: Soft, Non Tender and Non Distended
Skin: Warm and Dry
Psych: Calm
Laboratory Results
-
05/16/25 07:58
05/16/25 07:58
Laboratory Results
Total Bilirubin 0.8 mg/dl (0.2-1.3) 05/16/25 07:58
AST 42 U/L (17-59) 05/16/25 07:58
ALT 89 U/L (0-50) H 05/16/25 07:58
Alkaline Phosphatase 45 U/L (38-126) 05/16/25 07:58
Troponin I 0.036 ng/ml H* 05/16/25 07:58
Impression/Plan
-
Acute on chronic exacerbation HFpEF, EF 60%, 7 pound weight gain
BNP in the 600s however morbidly obese, lower than previous
Received IV 40 mg Lasix already followed up to handheld urinal
Order IV 40 mg twice a day Lasix
2D echocardiogram
Monitor urinary output
Monitor on telemetry
Keep K greater than 4 magnesium greater than 2
Goal net negative to 1.5 to 2 L daily
Cardiology consult
?Shortness of breath
Secondary to heart failure however cannot exclude OHS
Likely requires outpatient sleep study
Hypertension
Continue to hypertensives
BPH
Continue Flomax.
Full code
[2025-05-16 13:31] VITALS: BP 149/72; BMI 40.0
[2025-05-16 13:37] LABS: Troponin I 0.034 ng/ml
[2025-05-16 13:38] VITALS: BMI 40.0
--- NOTE | 2025-05-16 13:40 | PTCARENOTE ---
Pt. educated and instructed on importance in voiding in urinal to measure accurate I&Os. Pt. insisted on voiding in toilet.
[2025-05-16] MEDS: VENTOLIN NEBULES 2.5 MG INH (14:29)
[2025-05-16] MEDS: TYLENOL 650 MG PO (17:57)
--- NOTE | 2025-05-16 17:57 | PTCARENOTE ---
Pt. informed this nurse that he removed and discarded nitro patch that was placed in ED. Pt. reports headache, Tylenol give as ordered.
[2025-05-16 18:51] LABS: Troponin I 0.024 ng/ml
[2025-05-16] MEDS: VENTOLIN NEBULES INH (19:22)
[2025-05-16 19:30] VITALS: BP 123/73
[2025-05-16] MEDS: TIMOPTIC 0.5% OPHTHALMIC SOLUTION 1 DROP BOTH EYES (20:39)
[2025-05-16] MEDS: TRUSOPT 2% OPHTHALMIC SOLUTION 1 DROP BOTH EYES (20:40)
[2025-05-16 23:49] VITALS: BP 115/75
[2025-05-17] VITALS (8 sets, daily range): BP systolic 106–153; BP diastolic 73–95; BMI 39.7
[2025-05-17 01:37] LABS: Troponin I 0.031 ng/ml
[2025-05-17] MEDS: VENTOLIN NEBULES INH ×2 (02:20→07:47)
[2025-05-17 07:33] LABS: Hematocrit 40.0 % (39.0-52.0); Hemoglobin 13.5 g/dL (13.0-18.0); Mean Corp Hgb Conc. 33.8 g/dL (33.0-37.0); Mean Corpuscular Volume 85.5 fL (80.0-94.0); Platelet Count 132 10^3/uL (130-400); Red Cell Dist. Width 13.9 % (11.5-14.5)
[2025-05-17 08:04] LABS: Blood Urea Nitrogen 19 mg/dl (9-20); Calcium 8.8 mg/dl (8.4-10.2); Carbon Dioxide 29 mmol/L (22-30); Chloride 105 mmol/L (98-107); Estimated Creatinine Clearance 110 ml/min; Glucose 123 mg/dl (70-99); Magnesium 2.2 mg/dl (1.6-2.3); Potassium 4.0 mmol/L (3.5-5.1); Sodium 139 mmol/L (135-145); eGFR > 60.00
[2025-05-17] MEDS: BENICAR 20 MG PO (09:11)
[2025-05-17] MEDS: FARXIGA 10 MG PO (09:11)
[2025-05-17] MEDS: ALDACTONE 25 MG PO (09:11)
[2025-05-17] MEDS: LOW STRENGTH ASPIRIN 81 MG PO (09:12)
[2025-05-17] MEDS: FLOMAX 0.4 MG PO (09:12)
[2025-05-17] MEDS: TRUSOPT 2% OPHTHALMIC SOLUTION BOTH EYES (09:13)
[2025-05-17] MEDS: TIMOPTIC 0.5% OPHTHALMIC SOLUTION 1 DROP BOTH EYES ×2 (09:13→19:40)
[2025-05-17] MEDS: LASIX 40 MG IV ×2 (09:13→15:24)
--- NOTE | 2025-05-17 12:38 | W.PN.HOSP.TC ---
Today's Communication/Plan
-
Assessment / Plan
Assessment / Plan
General: No Apparent Distress, Comfortable and Morbidly Obese
HEENT: NormoCephalic and Anicteric
Respiratory: Crackles (Bibasilar)
Cardiac: S1/S2 and Regular Rhythm
GI: Soft, Non Tender and Non Distended
Skin: Warm and Dry
Psych: Calm
Acute on chronic exacerbation HFpEF, EF 60%, 7 pound weight gain
BNP in the 600s however morbidly obese, lower than previous
Received IV 40 mg Lasix already followed up to handheld urinal
Order IV 40 mg twice a day Lasix
2D echocardiogram
Monitor urinary output
Monitor on telemetry
Keep K greater than 4 magnesium greater than 2
Goal net negative to 1.5 to 2 L daily
Cardiology consult
?Shortness of breath
Secondary to heart failure however cannot exclude OHS
Likely requires outpatient sleep study
Hypertension
Continue to hypertensives
BPH
Continue Flomax.
Full code
Anticipated Discharge: 24 - 48 hours
Subjective/Interval History
-
Date of Service: May 17, 2025
Seen and examined. No new complaints. No acute overnight events..
Breathing improved
Continues to urinate a lot
Objective Data
-
Labs:
Laboratory Results
05/17/25
06:33
WBC 6.0
Hgb 13.5
Hct 40.0
Plt Count 132
Sodium 139
Potassium 4.0
Chloride 105
Carbon Dioxide 29
BUN 19
Creatinine 0.9
Glucose 123 H
Calcium 8.8
Vital Signs:
Vital Signs
Temp Pulse Resp BP Pulse Ox
98.2 F 74 16 112/73 95
05/17/25 11:53 05/17/25 11:53 05/17/25 11:53 05/17/25 11:53 05/17/25 11:53
I&O
05/16/25 05/17/25 05/18/25
06:59 06:59 06:59
Intake Total 480 / 480
Output Total 2355 / 2355
Balance -1874 / -1874
--- NOTE | 2025-05-17 14:52 | W.PN.CD ---
Addendum entered and electronically signed by Pepito Levy MD 05/17/25 16:00:
He has a hx of SVT
Tele shows PVCs, couplets, some might be aberrantes SVE, Lots of PACs and narrow runs. Possible AT vs atyp AVNRT that is slow. Nurse thinks she saw AFib
More tle review needed and check EKG for sustained rhythm changes.
Original Note:
Today's Communication / Plan
-
Consult dictated
Echo Sunday
IV Lasix today
Move to PO Lasix 05/18/2025=> Lasix 40 mg daily
[facility] and have case management work with him, should have labs in 2 and 4 weeks
Impression / Plan
-
Acute HFpEF
- Was euvolemic at 107.6 kg on 05/20/2024. New dry weight not determined
- Restart HFpEF meds
- Update Echo
- Lack of insurance will make med rx more challenging
- Will use generic ARB/Furosemide/Aldactone, good idea to start SGLT2-I but he may not be able to pay for it => case management
Non adherence to therapy
Mild aortic stenosis (cath 2018 and echo 05/2024)
Severe hyperlipidemia
- refuses statin and any cholesterol medications
- LDL over 190 at times
HTN
Glaucoma with visual loss
Mild CAD
- He reports cath at [facility] with just a 40% lesion
- Cath here 2019: 70% ostial RV branch, not felt to cause CP
Obesity with comorbidities, BMI 39.7
Hx of fatty liver => should have f/u and seems like a good candidate for Zepbound
Subjective:
Feels better after diuresis
Data:
CXR 05/16/2025:
Suspect mild CHF and/or pneumonitis, slightly progressed.
Echo 05/20/2024:
Normal biventricular size and systolic function without regional wall motion
abnormality.
Mild concentric left ventricular hypertrophy.
Indeterminate diastolic function.
Mild aortic stenosis (mean 24 mmHg, LUIS ANTONIO 1.7cm2).
Proximal Asc Ao Diameter 3.7cm (mildly enlarged).
No significant change since the prior study of 06/25/2019.
Cath 2019:
1: Mild aortic stenosis with mean gradient 15 mmHg
2: Normal left ventricular function with EF 62%
3. No significant CAD other than a ostial lesion in a right ventricular branch. This should not be causing any anginal symptoms and there is no role for PCI
4. Recommend GI evaluation for further evaluation of his symptoms
5. I would not recommend aspirin therapy at this point although if he does not have any GI pathology, this can be considered
Guidera
Physical Exam
Vital Signs/Labs
Vital Signs
Temp Pulse Resp BP Pulse Ox
98.2 F 74 16 112/73 95
05/17/25 11:53 05/17/25 11:53 05/17/25 11:53 05/17/25 11:53 05/17/25 11:53
05/16/25 05/17/25 05/18/25
06:59 06:59 06:59
Actual Weight 118.388 kg
05/17/25 06:33
05/17/25 06:33
Magnesium 2.2 mg/dl (1.6-2.3) 05/17/25 06:33
05/16/25
07:58
Blr-P-Msvalmdopsh Pept 670
LAB Results
05/16/25 05/16/25 05/16/25
07:58 11:30 12:30
Troponin I 0.036 H* 0.034 Cancelled
05/16/25 05/17/25
18:19 00:41
Troponin I 0.024 D 0.031 D
Data Reviewed
-
Date of Service: May 17, 2025
--- NOTE | 2025-05-17 14:54 | PTCARENOTE ---
Dr. Velez and Dr. Levy made aware pt. pt. had a 2 min run of AFIB, HR 136-142, pt. converted back to sinus, HR 88-90. Pt. resting in bed at this time and asymptomatic. Will continue to monitor pt.
--- NOTE | 2025-05-17 17:18 | W.PN.UPDATE ---
Update Note
Progress Note Update
EKG confirms new AFIb
Hope it will be paroxysmal
Will add PO Metoprolol
Will need to discuss OAT in detail with him tomorrow
TSH is normal
--- NOTE | 2025-05-17 17:30 | PTCARENOTE ---
Pt. HR in 160's while pt. sitting in chair after eating pizza for dinner, pt. with c/o heartburn and palpations. EKG AIB w/RVR. Dr. Velez and Dr. Levy made aware. Pt. refused to take Metoprolol as ordered by Dr. Levy and requesting Bystolic,
stating he took it before he lost his insurance. Orders updated per pt. request by dr. Levy. Pt. resting in bed at this time, HR remains in 120s.
[2025-05-17] MEDS: BYSTOLIC 10 MG PO (18:08)
--- NOTE | 2025-05-17 18:10 | PTCARENOTE ---
Bystolic given as ordered. Pt. resting in bed, HR 110 and remains in AFIB. Will pass on to oncoming shift RN.
[2025-05-17] MEDS: TRUSOPT 2% OPHTHALMIC SOLUTION 1 DROP BOTH EYES (19:41)
[2025-05-18 04:05] VITALS: BP 113/79
[2025-05-18 05:34] VITALS: BMI 39.1
[2025-05-18 07:25] VITALS: BP 124/85
--- NOTE | 2025-05-18 07:49 | W.PN.HOSP.TC ---
Today's Communication/Plan
-
cont PO diuresis
daily weight I/O
pending ECHO
discharge planning
Assessment / Plan
Assessment / Plan
Physical
General: No Apparent Distress, Comfortable and Morbidly Obese
HEENT: NormoCephalic and Anicteric
Respiratory: Clear to auscultation b/l
Cardiac: S1/S2 Irregularly Irregular
GI: Soft, Non Tender and Non Distended
Skin: Warm and Dry
Neuro: AOx3 conversant coherent
Psych: Calm
59M CAD HTN BPH Obesity HFpEF here for Acute on Chronic HFpEF. Uninsured
Acute on chronic exacerbation HFpEF, EF 60%, 7 pound weight gain
BNP in the 600s however morbidly obese, lower than previous
Received IV 40 mg Lasix already followed up to handheld urinal
Order IV 40 mg twice a day Lasix
2D echocardiogram pending
Monitor urinary output
Monitor on telemetry
daily weight I/O
Cardiology consult appreciated
pAfib
patient notes hx since he was a child
Would benefit stroke risk reduction with OAC however lack of insurance is a significant barrier
Patient also unsure as to whether he wants to start anticoagulation given family who suffered complication from blood thinners
Shortness of breath
Secondary to heart failure however cannot exclude OHS
Likely requires outpatient sleep study
Hypertension
Continue to hypertensives
BPH
Continue Flomax.
Full code
I spent a total of 45 minutes with the patient or on the floor. More than 50% of this time involved counseling and coordination of care.
Anticipated Discharge: 24 - 48 hours
Subjective/Interval History
-
Date of Service: May 18, 2025
No acute distress, overall reports feeling well. Stable respiratory status on room air. Refused meds this morning, counseled on the importance of compliance. Patient verbalized his willingness to comply with recommendations.
Objective Data
-
Labs:
Laboratory Results
05/18/25
07:43
WBC Pending
Hgb Pending
Hct Pending
Plt Count Pending
Sodium Pending
Potassium Pending
Chloride Pending
Carbon Dioxide Pending
BUN Pending
Creatinine Pending
Glucose Pending
Calcium Pending
Vital Signs:
Vital Signs
Temp Pulse Resp BP Pulse Ox
97.8 F 79 16 113/79 96
05/18/25 04:05 05/18/25 04:05 05/18/25 04:05 05/18/25 04:05 05/18/25 04:05
I&O
05/17/25 05/18/25 05/19/25
06:59 06:59 06:59
Intake Total 480 / 480 1200 / 1200
Output Total 2355 / 2355 3370 / 3370
Balance -1875 / -1875 -2170 / -2170
[2025-05-18 08:30] LABS: Blood Urea Nitrogen 25 mg/dl (9-20); Calcium 9.8 mg/dl (8.4-10.2); Carbon Dioxide 28 mmol/L (22-30); Chloride 104 mmol/L (98-107); Estimated Creatinine Clearance 99 ml/min; Glucose 139 mg/dl (70-99); Magnesium 2.4 mg/dl (1.6-2.3); Potassium 4.6 mmol/L (3.5-5.1); Sodium 140 mmol/L (135-145); eGFR > 60.00
[2025-05-18] MEDS: ALDACTONE PO (09:16)
[2025-05-18] MEDS: BENICAR PO (09:17)
[2025-05-18] MEDS: LASIX PO (09:17)
[2025-05-18] MEDS: BYSTOLIC 10 MG PO (09:18)
[2025-05-18] MEDS: FLOMAX 0.4 MG PO (09:18)
[2025-05-18] MEDS: LOW STRENGTH ASPIRIN 81 MG PO (09:18)
[2025-05-18] MEDS: TIMOPTIC 0.5% OPHTHALMIC SOLUTION 1 DROP BOTH EYES ×2 (09:18→20:16)
[2025-05-18] MEDS: TRUSOPT 2% OPHTHALMIC SOLUTION 1 DROP BOTH EYES ×2 (09:18→20:16)
[2025-05-18] MEDS: FARXIGA 10 MG PO (09:18)
[2025-05-18 11:15] VITALS: BP 119/77
[2025-05-18 12:10] LABS: Hematocrit 47.0 % (39.0-52.0); Hemoglobin 15.7 g/dL (13.0-18.0); Mean Corp Hgb Conc. 33.4 g/dL (33.0-37.0); Mean Corpuscular Volume 85.3 fL (80.0-94.0); Platelet Count 173 10^3/uL (130-400); Red Cell Dist. Width 13.7 % (11.5-14.5)
[2025-05-18 15:10] VITALS: BP 109/63
--- NOTE | 2025-05-18 15:27 | W.PN.CD ---
Today's Communication / Plan
-
Weights trending down continue diuretic.
Medication and cost being reviewed by case management. Patient says he is also working with case management regarding insurance issues.
PAF. Patient spontaneously converted to sinus rhythm. Would recommend anticoagulation with Eliquis.
Patient will need basic metabolic profile 1 week after discharge and again in 3 weeks post discharge
Echocardiogram in a.m.
Impression / Plan
-
Acute HFpEF
- Was euvolemic at 107.6 kg on 05/20/2024. New dry weight not determined
- Restart HFpEF meds
- Update Echo 05/19/2025
- Lack of insurance will make med rx more challenging. Patient working with case management.
- Will use generic ARB/Furosemide/Aldactone, good idea to start SGLT2-I but he may not be able to pay for it => case management
- Overall improved and patient now on oral diuretic. Will need follow-up labs as an outpatient 1 week after discharge and then again in 3 weeks
PAF. A-fib noted this admission. Has spontaneously converted back to sinus rhythm. Anticoagulation with Eliquis recommended. Patient has some concerns because he reports that his father had a bleeding problem sounds as if there may have been an
intracranial hemorrhage. CHADSVASC 2-3 (hypertension, heart failure and CAD )
Non adherence to therapy
Mild aortic stenosis (cath 2018 and echo 05/2024)
Severe hyperlipidemia
- refuses statin and any cholesterol medications
- LDL over 190 at times
HTN
Glaucoma with visual loss
Mild CAD
- He reports cath at [facility] with just a 40% lesion
- Cath here 2019: 70% ostial RV branch, not felt to cause CP
Obesity with comorbidities, BMI 39.7. Patient states he did not tolerate Ozempic
Subjective:
Feeling better currently on room air. Weights trending down
Data:
CXR 05/16/2025:
Suspect mild CHF and/or pneumonitis, slightly progressed.
Echo 05/20/2024:
Normal biventricular size and systolic function without regional wall motion
abnormality.
Mild concentric left ventricular hypertrophy.
Indeterminate diastolic function.
Mild aortic stenosis (mean 24 mmHg, LUIS ANTONIO 1.7cm2).
Proximal Asc Ao Diameter 3.7cm (mildly enlarged).
No significant change since the prior study of 06/25/2019.
Cath 2019:
1: Mild aortic stenosis with mean gradient 15 mmHg
2: Normal left ventricular function with EF 62%
3. No significant CAD other than a ostial lesion in a right ventricular branch. This should not be causing any anginal symptoms and there is no role for PCI
4. Recommend GI evaluation for further evaluation of his symptoms
5. I would not recommend aspirin therapy at this point although if he does not have any GI pathology, this can be considered
Guidera
Physical Exam
Vital Signs/Labs
Vital Signs
Temp Pulse Resp BP Pulse Ox
98.1 F 82 16 119/77 97
05/18/25 11:15 05/18/25 11:15 05/18/25 11:15 05/18/25 11:15 05/18/25 11:15
05/17/25 05/18/25 05/19/25
06:59 06:59 06:59
Actual Weight 118.388 kg 116.63 kg
05/18/25 07:43
05/18/25 07:43
Magnesium 2.4 mg/dl (1.6-2.3) H 05/18/25 07:43
05/16/25
07:58
Amt-S-Qylenpjigak Pept 670
LAB Results
05/16/25 05/16/25 05/16/25
07:58 11:30 12:30
Troponin I 0.036 H* 0.034 Cancelled
05/16/25 05/17/25
18:19 00:41
Troponin I 0.024 D 0.031 D
Physical Exam
Constitutional: No acute distress
Cardiovascular: Rhythm & rate is regular and Systolic murmur present (2/6 systolic murmur greatest right upper sternal border)
Respiratory: Respiratory effort normal
GI: Soft and Non tender
Neuro/Psych: Alert
Data Reviewed
-
Date of Service: May 18, 2025
Medical Decision Making: Reviewed Test Results
X-Ray/CT/US/MRI/NUC/PET: Report Reviewed by me
Medical Tests (PFT, Pathology etc): Report Reviewed by me
Labs: Labs Reviewed by me
--- NOTE | 2025-05-18 16:21 | CM ---
Met with patient to obtain information for assessment. Patient stated that he lives with his spouse and children in a three story home with one step to enter. He is independent with all ADLs, personal care, dressing and bathing. He can cook, clean,
do laundry and swing manager. He drives and can get to appointments and does all of his own shopping. He has no DME. Never been to a SNF or had VN.
Plan: Case management will continue to follow and assist with discharge planning. Home when stable.
[2025-05-18] MEDS: TYLENOL 650 MG PO (18:03)
[2025-05-18 19:00] VITALS: BP 106/64
[2025-05-18] MEDS: FLUSH (NSS) 1 FLUSH IV (20:16)
[2025-05-18 23:00] VITALS: BP 106/65
[2025-05-19 03:00] VITALS: BP 112/73
[2025-05-19 06:00] VITALS: BMI 39.2
[2025-05-19 07:00] VITALS: BP 116/76; BP 131/69
[2025-05-19 08:13] LABS: Hematocrit 44.7 % (39.0-52.0); Hemoglobin 14.5 g/dL (13.0-18.0); Mean Corp Hgb Conc. 32.4 g/dL (33.0-37.0); Mean Corpuscular Volume 87.0 fL (80.0-94.0); Platelet Count 158 10^3/uL (130-400); Red Cell Dist. Width 13.7 % (11.5-14.5)
--- NOTE | 2025-05-19 08:35 | W.PN.HOSP.TC ---
Today's Communication/Plan
-
discharge
Assessment / Plan
Assessment / Plan
Physical
General: No Apparent Distress, Comfortable and Morbidly Obese
HEENT: NormoCephalic and Anicteric
Respiratory: Clear to auscultation b/l
Cardiac: S1/S2 Irregularly Irregular
GI: Soft, Non Tender and Non Distended
Skin: Warm and Dry
Neuro: AOx3 conversant coherent
Psych: Calm
59M CAD HTN BPH Obesity HFpEF here for Acute on Chronic HFpEF. Uninsured
Acute on chronic exacerbation HFpEF, EF 60%, 7 pound weight gain
BNP in the 600s however morbidly obese, lower than previous
Treated w IV Lasix 40 mg BID since transitioned to PO Lasix 40 mg daily with clinical improvement.
Monitor urinary output
Monitor on telemetry
daily weight I/O
Cardiology consult appreciated
ECHO appreciated EF 52% mod aortic stenosis
Compliant with Lasix and Bystolic, refusing Benicar and Aldactone.
pAfib
patient notes hx since he was a child
Would benefit stroke risk reduction with OAT however lack of insurance is a significant barrier
Patient also declining at this time given close family member who suffered complication from blood thinners
Shortness of breath
Secondary to heart failure however cannot exclude OHS
Obesity
outpt sleep study recommended
Hypertension
Continue antihypertensives
BPH
Continue Flomax.
Full code
Medically stable for discharge home with outpatient follow up recommendations.
Total Time Preparing Discharge __40 minutes including examination of the patient, summary of the hospital stay, instructions for continuing care to all relevant caregivers; and preparation of discharge records, prescriptions, and referral
forms if necessary.
Anticipated Discharge: Today
Subjective/Interval History
-
Date of Service: May 19, 2025
No acute distress, ambulating without need for assist device. Reports overall feeling well. Eager to go home. Denies new acute issues at this time.
Objective Data
-
Labs:
Laboratory Results
05/19/25
06:26
WBC 7.9
Hgb 14.5
Hct 44.7
Plt Count 158
Sodium Pending
Potassium Pending
Chloride Pending
Carbon Dioxide Pending
BUN Pending
Creatinine Pending
Glucose Pending
Calcium Pending
Vital Signs:
Vital Signs
Temp Pulse Resp BP Pulse Ox
97.5 F 65 12 116/76 94
05/19/25 07:00 05/19/25 07:00 05/19/25 07:00 05/19/25 07:00 05/19/25 07:00
I&O
05/18/25 05/19/25 05/20/25
06:59 06:59 06:59
Intake Total 1200 / 1200 900 / 900
Output Total 3370 / 3370 2650 / 2650 125 / 125
Balance -2170 / -2170 -1750 / -1750 -125 / -125
[2025-05-19 08:50] LABS: Blood Urea Nitrogen 36 mg/dl (9-20); Calcium 9.9 mg/dl (8.4-10.2); Carbon Dioxide 30 mmol/L (22-30); Chloride 101 mmol/L (98-107); Estimated Creatinine Clearance 90 ml/min; Glucose 120 mg/dl (70-99); Magnesium 2.4 mg/dl (1.6-2.3); Potassium 4.4 mmol/L (3.5-5.1); Sodium 138 mmol/L (135-145); eGFR > 60.00
[2025-05-19] MEDS: BYSTOLIC 10 MG PO (09:02)
[2025-05-19] MEDS: TIMOPTIC 0.5% OPHTHALMIC SOLUTION 1 DROP BOTH EYES (09:03)
[2025-05-19] MEDS: FARXIGA 10 MG PO (09:03)
[2025-05-19] MEDS: LASIX 40 MG PO (09:03)
[2025-05-19] MEDS: LOW STRENGTH ASPIRIN 81 MG PO (09:03)
[2025-05-19] MEDS: FLOMAX 0.4 MG PO (09:03)
[2025-05-19] MEDS: TRUSOPT 2% OPHTHALMIC SOLUTION 1 DROP BOTH EYES (09:03)
[2025-05-19] MEDS: BENICAR PO (09:03)
[2025-05-19] MEDS: ALDACTONE PO (09:04)
--- NOTE | 2025-05-19 09:29 | W.PN.CD ---
Today's Communication / Plan
-
For echo
Will need BMP in 1-2 weeks and again in 4-6 weeks
We will be happy to see him in the office, perhaps he prefers clinic until his insurance issues are resolved
Impression / Plan
-
Acute HFpEF
- Seems euvolemic today at 116.7 kg/BMI 39.1
- HFpEF meds resumed, but for echo to assure EF normal
- Lack of insurance will make med rx more challenging. Patient working with case management.
- Will use generic ARB/Furosemide/Aldactone, good idea to start SGLT2-I but he may not be able to pay for it => case management
PAF and Paroxysmal Atypical Atrial Flutter
- Might be new, hx of 'SVT' with multiple remote ablations
- Rhythm: paroxysmal, in sinus, just rate control meds for now, later can move to ablation or AAD
- Rate: Better on beta syed, he has used BB form many years for his SVT
- CHADSVASC 2-3 (hypertension, heart failure and CAD) => father had bleeding on OAT and for now patient declines
Non adherence to therapy
Mild aortic stenosis (cath 2018 and echo 05/2024)
Severe hyperlipidemia
- refuses statin and any cholesterol medications
- LDL over 190 at times
HTN
Glaucoma with visual loss
Mild CAD
- He reports cath at [facility] with just a 40% lesion performed within the last year
- Cath here () 2019: 70% ostial RV branch, not felt to cause CP
SVT: reports as many as 5 prior ablations, no details available
Obesity with comorbidities, BMI 39.7. Patient states he did not tolerate Ozempic
Subjective:
Feeling better currently on room air.
Data:
CXR 05/16/2025:
Suspect mild CHF and/or pneumonitis, slightly progressed.
Echo 05/20/2024:
Normal biventricular size and systolic function without regional wall motion
abnormality.
Mild concentric left ventricular hypertrophy.
Indeterminate diastolic function.
Mild aortic stenosis (mean 24 mmHg, LUIS ANTONIO 1.7cm2).
Proximal Asc Ao Diameter 3.7cm (mildly enlarged).
No significant change since the prior study of 06/25/2019.
Cath 2019:
1: Mild aortic stenosis with mean gradient 15 mmHg
2: Normal left ventricular function with EF 62%
3. No significant CAD other than a ostial lesion in a right ventricular branch. This should not be causing any anginal symptoms and there is no role for PCI
4. Recommend GI evaluation for further evaluation of his symptoms
5. I would not recommend aspirin therapy at this point although if he does not have any GI pathology, this can be considered
Guidera
Physical Exam
Vital Signs/Labs
Vital Signs
Temp Pulse Resp BP Pulse Ox
97.5 F 65 12 116/76 94
05/19/25 07:00 05/19/25 09:02 05/19/25 07:00 05/19/25 09:02 05/19/25 07:00
05/18/25 05/19/25 05/20/25
06:59 06:59 06:59
Actual Weight 116.63 kg 116.772 kg
05/19/25 06:26
05/19/25 06:26
Magnesium 2.4 mg/dl (1.6-2.3) H 05/19/25 06:26
05/16/25
07:58
Qdm-V-Zbavdmgfvcp Pept 670
LAB Results
05/16/25 05/16/25 05/16/25
11:30 12:30 18:19
Troponin I 0.034 Cancelled 0.024 D
05/17/25
00:41
Troponin I 0.031 D
Physical Exam
Constitutional: No acute distress
EENT: Anicteric
Cardiovascular: Rhythm & rate is regular and Pedal edema is absent
Respiratory: Respiratory effort normal and Lungs clear to auscul.
GI: Soft and Distention absent
Neuro/Psych: AO x 3
Data Reviewed
-
Date of Service: May 19, 2025
[2025-05-19 10:03] VITALS: BP 131/69; BP 134/69; BP 73/51; PULSE 106
--- NOTE | 2025-05-19 12:04 | CARDSERVLU ---
Echocardiogram with Lumason completed after protocol screening completed. Allergies verified.
Patent IV site: __existing 20P RFA___
IV site flushed with 0.9% NaCl pre and post administration.
Diluted bolus method utilized to enhance visualization of ventricular loyd.
Total volume given: __3.0__ mL
Patient tolerated all procedures well without complications.
--- NOTE | 2025-05-19 14:31 | HFEDUCATE ---
59 yo male admitted with SOB at rest, unable to lay flat, ankle swelling getting worse and a 7lb weight gain. Past medical history includes non-obstructive CAD, HTN, BPH, PAH and paroxysmal atypical Atrial Flutter, HTN and glaucoma. His current
ejection fraction by echocardiogram is 62%. He lives at home with his and children. He reports not following a low sodium diet or 48oz fluid restriction per day. He has a scale at home but has not been weighing himself daily.
I provided HF education and discussed the usual lifestyle recommendations. I discussed with him his diagnosis of heart failure and I advised he follow a low sodium diet of 4143-5203 mg. per day, and limit it to 500-750 mg. per meal. I advised a 48oz
fluid restriction per day and discussed ways to achieve the recommendations. I also advised he weigh himself daily and to monitor for any slight weight gain. I explained how to monitor for exacerbations. We discussed other alarming symptoms to watch
for and when to notify his provider. We discussed need for medications and why they are so important to take.
Recommendations:
Continue all HF recommended medications as ordered on discharge.
Limit sodium intake to <500-750 mg per meal.
Limit fluid intake to <48 oz per day.
Daily weights and contact provider for any weight gain >3lbs in one day or 5lbs in one week.
Follow up with provider as recommended.
[2025-05-19 15:00] VITALS: BP 105/61
--- NOTE | 2025-05-19 15:03 | CM ---
Addendum entered by Manjula Merino RN 05/19/25 16:18:
Spoke with Renuka from [facility] . Pt was seen by Renuka for no insurance.
Original Note:
Spoke with with patient he said at discharge his Thuy will drive him home.
Offered VN he declined need at discharge.
PLAN Home no needs .
--- NOTE | 2025-05-19 17:02 | W.DCSUMMARY ---
Discharge Summary
Discharge Data
Date of Admission: 05/16/25
Date of Discharge: 05/19/25
-
Pending Results: No
Discharge Plan
-
Patient Disposition: Home (Routine Discharge)
Discharge Diagnosis/Procedures: Acute on Chronic Heart Failure with Preserved Ejection Fraction
Moderate Aortic Stenosis
Paroxysmal Atrial Fibrillation
Morbid Obesity
Hyperlipidemia
Condition: Fair
Diet: Low Cholesterol and Restrict fluids to 48 oz
Activity: As tolerated
Driving Restrictions: As prior to admission
Bathing Restrictions: None
Blood Work: Repeat BMP in 1-2 weeks of discharge and 4-6 weeks of discharge. Results to be forwarded to Primary care provider and Business Project Manager
Others Tests: Follow up with primary care provider for outpatient sleep study in 1 month of discharge.
Activity Restrictions/Additional Instructions:
Follow up with primary care provider in 1 week of discharge and Cardiology in 2-4 weeks of discharge.
Lasix prescribed for Heart Failure.
Nebivolol prescribed for hypertension, heart failure, and paroxysmal atrial fibrillation.
Paper scripts have been provided for you to fill your prescription at pharmacy of your choosing.
Please take medications as prescribed/recommended and follow up with primary care provider, Cardiology, and/or other healthcare provider involved in your care for refills and/or further adjustment to your medication regimen as necessary.
Referrals:
Pepito Levy MD [Active, Cardiology] - in two to four weeks
UNKNOWN - PT DOES,NOT KNOW [Family Provider]
Prescriptions:
New
furosemide 40 mg Tablet
40 mg PO DAILY Qty: 30 0RF
nebivolol 10 mg Tablet
10 mg PO DAILY Qty: 30 0RF
Continued
tamsulosin 0.4 MG capsule
0.4 mg PO DAILY
dorzolamide-timolol (PF) 2-0.5 % Dropperette
1 drp BOTH EYES BID
aspirin 81 mg Tablet,Chewable
81 mg PO DAILY Qty: 30 0RF
albuterol sulfate 90 mcg/actuation HFA aerosol inhaler
2 puff inhalation Q6H PRN (Reason: shortness of breath or wheezing) Qty: 8.5 1RF
albuterol sulfate 2.5 mg /3 mL (0.083 %) solution for nebulization
2.5 mg inhalation Q6H PRN (Reason: shortness of breath or wheezing) Qty: 75 0RF
Discontinued
olmesartan 20 mg Tablet
20 mg PO DAILY
spironolactone 25 mg Tablet
25 mg PO DAILY Qty: 30 0RF
furosemide 20 mg Tablet
20 mg PO DAILY Qty: 30 0RF
methylprednisolone [Medrol (Reynaldo)] 4 mg tablets,dose pack
See Rx Instructions .ROUTE .COMPLEX Qty: 21 0RF
Rx Instructions:
for 6 days
doxycycline hyclate 100 mg tablet
100 mg PO BID Qty: 20 0RF
prednisone 50 mg tablet
50 mg PO DAILY Qty: 5 0RF
doxycycline hyclate 100 mg capsule
100 mg PO BID Qty: 14 0RF
Discharge Orders:
Discharge Patient (As Directed); Ordered 05/19/25
Ordered By: Elly Palma
Discharge Date and Time
Print Language: LAO
== END 2025-05-19 17:28 | disposition home or self-care (01) | DRG 291 ==
LOC: 4 EAST ACU 12:53
PROVIDERS: ADMITTING PHYSICIAN Hospitalist; ATTENDING PHYSICIAN Internal Medicine; CONSULT PHYSICIAN Internal Medicine Cardiovascular Disease; EMERGENCY PHYSICIAN Emergency Medicine
DX: I11.0 Hypertensive heart disease with heart failure (principal); I50.33 Acute on chronic diastolic (congestive) heart failure; I47.10 Supraventricular tachycardia, unspecified; I48.0 Paroxysmal atrial fibrillation; I06.0 Rheumatic aortic stenosis; N40.0 Benign prostatic hyperplasia without lower urinary tract symptoms; I25.10 Atherosclerotic heart disease of native coronary artery without angina pectoris; E66.01 Morbid (severe) obesity due to excess calories; E78.5 Hyperlipidemia, unspecified; H54.7 Unspecified visual loss; K76.0 Fatty (change of) liver, not elsewhere classified; H40.9 Unspecified glaucoma; Z68.39 Body mass index [BMI] 39.0-39.9, adult; Z79.899 Other long term (current) drug therapy; Z11.52 Encounter for screening for COVID-19; Z59.71 Insufficient health insurance coverage
CPT/HCPCS: 71046; 80048; 80053; 83735; 83880; 84100; 84443; 84484; 85025; 85027; 87502; 87807; 87811; 93005; 93306; 94640; 96374; 99285; Q9950